=== PATIENT | female | born 1935 | race Caucasian/White ===

== ENCOUNTER → 2016-10-15 | Outpatient (CLI) | payer MEDICARE ==
--- NOTE | 2016-10-26 06:53 | MM ---
Reason for exam: additional evaluation requested from prior study. Last mammogram was performed 1 year ago. History: Patient is postmenopausal, has history of breast cancer at age 70, and has history of other cancer at age 70. Family history of breast cancer in mother at age 39, breast cancer in aunt at age 48, and breast cancer in daughter at age 47. Malignant lumpectomy of the right breast, 2006. Radiation therapy of the right breast, 2006. Excisional biopsy of the left breast, 1992. Took estrogen for 6 months beginning at age 33. Physical Findings: Nurse did not find any significant physical abnormalities on exam. MG Diagnostic Mammo w CAD MERLE LM, CC with magnification, and MLO with magnification view(s) were taken of the left breast. Prior study comparison: October 07, 2015, bilateral MG 3d screening mammo w/cad. October 03, 2014, right breast MG work up mamm w CAD RT. September 28, 2014, bilateral MG screening mammo w CAD. There are scattered fibroglandular densities. Left breast focal asymmetry upper outer quadrant resolves on spot compression and appears as fibroglandular tissue. There is no discrete abnormality. These results were verbally communicated with the patient and result sheet given to the patient on 10/15/16. ASSESSMENT: Negative, BI-RAD 1 RECOMMENDATION: Routine screening mammogram of both breasts in 1 year.
== END | disposition home or self-care (01) ==
LOC: RADMAMWWP 07:29
PROVIDERS: ATTEND Internal Medicine Hematology & Oncology
DX: Z85.3 Personal history of malignant neoplasm of breast (principal)

== ENCOUNTER → 2017-11-24 | Outpatient (CLI) | payer MEDICARE ==
--- NOTE | 2017-11-25 13:36 | MM ---
Reason for exam: screening (asymptomatic). Last mammogram was performed 1 year and 1 month ago. History: Patient is postmenopausal, has history of breast cancer at age 70, and has history of other cancer at age 70. Family history of breast cancer in mother at age 39, breast cancer in aunt at age 48, and breast cancer in daughter at age 47. Malignant lumpectomy of the right breast, 2006. Radiation therapy of the right breast, 2006. Excisional biopsy of the left breast, 1992. Took estrogen for 6 months beginning at age 33. Physical Findings: A clinical breast exam by your physician is recommended on an annual basis and results should be correlated with mammographic findings. MG Screening Mammo w CAD Bilateral CC and MLO view(s) were taken. Prior study comparison: October 15, 2016, bilateral MG diagnostic mammo w CAD MERLE. October 07, 2015, bilateral MG 3d screening mammo w/cad. There are scattered fibroglandular densities. There are benign appearing round, linear calcifications bilaterally, greater in the right breast. There is no discrete abnormality. Benign bilateral axillary lymph nodes. ASSESSMENT: Benign, BI-RAD 2 RECOMMENDATION: Routine screening mammogram of both breasts in 1 year.
== END | disposition home or self-care (01) ==
LOC: RADMAMWWP 08:53
PROVIDERS: ATTEND Internal Medicine Hematology & Oncology
DX: Z12.31 Encounter for screening mammogram for malignant neoplasm of breast (principal); Z85.3 Personal history of malignant neoplasm of breast
CPT/HCPCS: 77067

== ENCOUNTER 2018-04-08 12:47 | Inpatient (IN) | payer MEDICARE ==
[2018-04-08] MEDS ORDERED: SODIUM CHLORIDE 0.9% 500 ML 500 ML IV STA (13:10)
[2018-04-08] MEDS ORDERED: IPRATROPIUM 0.5 MG/2.5 ML NEBU INHALATION STA (13:10)
[2018-04-08] MEDS ORDERED: AZITHROMYCIN 500 MG in SODIUM CHLORIDE 0.9% 250 ML IVPB STA (13:10)
[2018-04-08] MEDS ORDERED: ALBUTEROL NEBULIZED 2.5 MG/3 ML INHALATION STA (13:10)
--- NOTE | 2018-04-08 13:31 | ED ---
General Adult HPI - General Chief complaint: Shortness of Breath Stated complaint: CHF/low oxygen Time Seen by Provider: 04/08/18 13:01 Source: patient, RN notes reviewed, old records reviewed Mode of arrival: wheelchair Limitations: no limitations - History of Present Illness Initial comments: 82 -year-old female presenting for evaluation of cough, dyspnea, and fever. Patient states the past 2-3 days she said significant productive cough with green sputum. She's had nasal congestion and rhinorrhea. She's had fever chills at home. She reports dyspnea associated with her cough. Denies significant central chest pain. She does have some chest congestion. Denies lower extremity pain or swelling. Denies abdominal pain nausea vomiting. She has positive sick contacts at home. She was seen at urgent care earlier today, x-ray was obtained which was suggestive of pneumonia. - Related Data Home Medications Medication Instructions Recorded Confirmed Calcium Carbonate [Calcium] 600 mg PO DAILY 04/08/18 04/08/18 Cholecalciferol [Vitamin D3] 1,000 unit PO DAILY 04/08/18 04/08/18 Levothyroxine Sodium 150 mcg PO DAILY 04/08/18 04/08/18 amLODIPine [Norvasc] 5 mg PO DAILY 04/08/18 04/08/18 Allergies Allergy/AdvReac Type Severity Reaction Status Date / Time Sulfa (Sulfonamide Allergy Unknown Verified 04/08/18 13:41 Antibiotics) Review of Systems ROS Statement: Those systems with pertinent positive or pertinent negative responses have been documented in the HPI. ROS Other: All systems not noted in ROS Statement are negative. Past Medical History Past Medical History: Hypertension, Thyroid Disorder History of Any Multi-Drug Resistant Organisms: None Reported Past Surgical History: Cholecystectomy, Hysterectomy, Tonsillectomy Additional Past Surgical History / Comment(s): thyroidectomy Past Psychological History: No Psychological Hx Reported Smoking Status: Never smoker Past Alcohol Use History: None Reported Past Drug Use History: None Reported General Exam Limitations: no limitations General appearance: alert, in no apparent distress Head exam: Present: atraumatic, normocephalic Eye exam: Present: normal appearance, PERRL ENT exam: Present: other (Congestion) Neck exam: Present: normal inspection. Absent: tenderness, meningismus Respiratory exam: Present: respiratory distress (mild), wheezes, rhonchi ( Scattered rhonchi) Cardiovascular Exam: Present: normal rhythm, tachycardia GI/Abdominal exam: Present: soft. Absent: distended, tenderness, guarding Extremities exam: Present: normal inspection, normal capillary refill. Absent: pedal edema Neurological exam: Present: alert, oriented X3, CN II-XII intact. Absent: motor sensory deficit Psychiatric exam: Present: normal affect Skin exam: Present: warm, dry, intact. Absent: cyanosis, diaphoretic Course Vital Signs 04/08/18 04/08/18 04/08/18 12:53 13:42 14:02 Temperature 100.6 F H Pulse Rate 106 H 98 111 H Respiratory 20 Rate Blood Pressure 113/73 O2 Sat by Pulse 87 L Oximetry EKG Findings - EKG Comments: EKG Findings:: EKG: Normal sinus rhythm, rate of 96, IA interval 176, QRS duration 64, QTC [address] segment elevation Medical Decision Making - Medical Decision Making 82-year-old female with cough and dyspnea. X-ray obtained, shows bilateral patchy infiltrate, worse in the left lung field. Patient is febrile, mildly tachycardic, white count 10.7 which is mildly elevated. Patient is started on IV antibiotics, and continued acquired pneumonia. Case is discussed with Dr. Pollard, he is able to evaluate patient emergency department and will admit. - Lab Data Result diagrams: 04/08/18 13:22 04/08/18 13:22 Lab Results 04/08/18 04/08/18 04/08/18 Range/Units 13:22 13:22 13:22 WBC 10.7 H (3.8-10.6) k/uL RBC 4.62 (3.80-5.40) m/uL Hgb 13.7 (11.4-16.0) gm/dL Hct 40.1 (34.0-46.0) % MCV 86.8 (80.0-100.0) fL MCH 29.7 (25.0-35.0) pg MCHC 34.2 (31.0-37.0) g/dL RDW 14.8 (11.5-15.5) % Plt Count 133 L (150-450) k/uL Neutrophils % 86 % Lymphocytes % 8 % Monocytes % 4 % Eosinophils % 1 % Basophils % 0 % Neutrophils # 9.2 H (1.3-7.7) k/uL Lymphocytes # 0.8 L (1.0-4.8) k/uL Monocytes # 0.5 (0-1.0) k/uL Eosinophils # 0.1 (0-0.7) k/uL Basophils # 0.0 (0-0.2) k/uL PT 10.6 (9.0-12.0) sec INR 1.0 (<1.2) APTT 25.9 (22.0-30.0) sec Sodium 132 L (137-145) mmol/L Potassium 4.3 (3.5-5.1) mmol/L Chloride 96 L (98-107) mmol/L Carbon Dioxide 24 (22-30) mmol/L Anion Gap 12 mmol/L BUN 34 H (7-17) mg/dL Creatinine 1.15 H (0.52-1.04) mg/dL Est GFR (CKD-EPI)AfAm 52 (>60 ml/min/1.73 sqM) Est GFR (CKD-EPI)NonAf 45 (>60 ml/min/1.73 sqM) Glucose 118 H (74-99) mg/dL Plasma Lactic Acid Shaan (0.7-2.0) mmol/L Calcium 8.3 L (8.4-10.2) mg/dL Magnesium 1.7 (1.6-2.3) mg/dL Total Bilirubin 1.9 H (0.2-1.3) mg/dL AST 63 H (14-36) U/L ALT 50 (9-52) U/L Alkaline Phosphatase 244 H (38-126) U/L Total Protein 7.8 (6.3-8.2) g/dL Albumin 3.8 (3.5-5.0) g/dL Influenza Type A RNA (Not Detectd) Influenza Type B (PCR) (Not Detectd) 04/08/18 04/08/18 Range/Units 13:22 13:33 WBC (3.8-10.6) k/uL RBC (3.80-5.40) m/uL Hgb (11.4-16.0) gm/dL Hct (34.0-46.0) % MCV (80.0-100.0) fL MCH (25.0-35.0) pg MCHC (31.0-37.0) g/dL RDW (11.5-15.5) % Plt Count (150-450) k/uL Neutrophils % % Lymphocytes % % Monocytes % % Eosinophils % % Basophils % % Neutrophils # (1.3-7.7) k/uL Lymphocytes # (1.0-4.8) k/uL Monocytes # (0-1.0) k/uL Eosinophils # (0-0.7) k/uL Basophils # (0-0.2) k/uL PT (9.0-12.0) sec INR (<1.2) APTT (22.0-30.0) sec Sodium (137-145) mmol/L Potassium (3.5-5.1) mmol/L Chloride (98-107) mmol/L Carbon Dioxide (22-30) mmol/L Anion Gap mmol/L BUN (7-17) mg/dL Creatinine (0.52-1.04) mg/dL Est GFR (CKD-EPI)AfAm (>60 ml/min/1.73 sqM) Est GFR (CKD-EPI)NonAf (>60 ml/min/1.73 sqM) Glucose (74-99) mg/dL Plasma Lactic Acid Shaan 1.7 (0.7-2.0) mmol/L Calcium (8.4-10.2) mg/dL Magnesium (1.6-2.3) mg/dL Total Bilirubin (0.2-1.3) mg/dL AST (14-36) U/L ALT (9-52) U/L Alkaline Phosphatase (38-126) U/L Total Protein (6.3-8.2) g/dL Albumin (3.5-5.0) g/dL Influenza Type A RNA Not Detected (Not Detectd) Influenza Type B (PCR) Not Detected (Not Detectd) Disposition Clinical Impression: Community acquired pneumonia Disposition: ADMITTED IP TO THIS HOSP Condition: Stable Is patient prescribed a controlled substance at d/c from ED?: No Referrals: Brian Zuluaga MD [Primary Care Provider] - 1-2 days Decision to Admit Reason: Admit from EC Decision Date: 04/08/18 Decision Time: 14:58
[2018-04-08 13:41] LABS: Basophils % (A) 0 %; Eosinophils # (A) 0.1 k/uL (0-0.7); Eosinophils % (A) 1 %; HCT 40.1 % (34.0-46.0); HGB 13.7 gm/dL (11.4-16.0); Lymphocytes # (A) 0.8 k/uL (1.0-4.8); Lymphocytes % (A) 8 %; MCH 29.7 pg (25.0-35.0); MCHC 34.2 g/dL (31.0-37.0); MCV 86.8 fL (80.0-100.0); Mean Platelet Volume 9.1; Monocytes # (A) 0.5 k/uL (0-1.0); Monocytes % (A) 4 %; Neutrophils # (A) 9.2 k/uL (1.3-7.7); Neutrophils % (A) 86 %; Platelet Count 133 k/uL (150-450); RBC 4.62 m/uL (3.80-5.40); RDW 14.8 % (11.5-15.5); WBC 10.7 k/uL (3.8-10.6)
[2018-04-08 13:48] LABS: Albumin 3.8 g/dL (3.5-5.0); Calcium 8.3 mg/dL (8.4-10.2); Magnesium 1.7 mg/dL (1.6-2.3); Total Bilirubin 1.9 mg/dL (0.2-1.3); Total Protein 7.8 g/dL (6.3-8.2)
[2018-04-08 13:50] LABS: Potassium 4.3 mmol/L (3.5-5.1)
[2018-04-08 14:14] LABS: Partial Thromboplastin Time 25.9 sec (22.0-30.0); Prothrombin Time 10.6 sec (9.0-12.0)
--- NOTE | 2018-04-08 14:53 | XR ---
EXAMINATION TYPE: XR chest 2V DATE OF EXAM: 04/08/2018 COMPARISON: 11/16/2011 HISTORY: Shortness of breath TECHNIQUE: Frontal and lateral views of the chest are obtained. FINDINGS: Scattered senescent parenchymal changes noted. Hyperinflation compatible with COPD. Patchy perihilar infiltrates may reflect underlying pneumonia. Correlate clinically and progress stud ies are advised. Heart size is stable. Mediastinal structures are stable and grossly unremarkable. No evidence for hilar prominence. Degenerative changes dorsal spine. IMPRESSION: 1. Patchy perihilar infiltrates may reflect underlying pneumonia. Correlate clinically and progress s tudies are advised.
--- NOTE | 2018-04-08 15:02 | P.HPIM ---
History of Present Illness 82-year-old pleasant female came in with compensative cough shortness of breath and fever has been going on for last 2-3 days with greenish sputum production patient is off so short of breath. Patient did quit smoking years ago. Patient doesn't use any onset at home. Patient is found to have bilateral hilar pneumonia. Appears to have severe tracheobronchitis or pneumonia on exam patient was started on Rocephin and azithromycin. Patient is hyponatremic as well for which patient on IV fluids. Review of Systems REVIEW OF SYSTEMS: CONSTITUTIONAL: As mentioned above HEENT: No recent visual problems or hearing problems. Denied any sore throat. CARDIOVASCULAR: No chest pain, orthopnea, PND, no palpitations, no syncope. PULMONARY: As mentioned above no hemoptysis GASTROINTESTINAL: No diarrhea, no nausea, no vomiting, no abdominal pain. NEUROLOGICAL: No headaches, no weakness, no numbness. HEMATOLOGICAL: Denies any bleeding or petechiae. GENITOURINARY: Denies any burning micturition, frequency, or urgency. MUSCULOSKELETAL/RHEUMATOLOGICAL: Denies any joint pain, swelling, or any muscle pain. ENDOCRINE: Denies any polyuria or polydipsia. The rest of the 14-point review of systems is negative. Past Medical History Past Medical History: Hypertension, Thyroid Disorder History of Any Multi-Drug Resistant Organisms: None Reported Past Surgical History: Cholecystectomy, Hysterectomy, Tonsillectomy Additional Past Surgical History / Comment(s): thyroidectomy Past Psychological History: No Psychological Hx Reported Smoking Status: Never smoker Past Alcohol Use History: None Reported Past Drug Use History: None Reported Medications and Allergies Home Medications Medication Instructions Recorded Confirmed Type Calcium Carbonate [Calcium] 600 mg PO DAILY 04/08/18 04/08/18 History Cholecalciferol [Vitamin D3] 1,000 unit PO DAILY 04/08/18 04/08/18 History Levothyroxine Sodium 150 mcg PO DAILY 04/08/18 04/08/18 History amLODIPine [Norvasc] 5 mg PO DAILY 04/08/18 04/08/18 History Allergies Allergy/AdvReac Type Severity Reaction Status Date / Time Sulfa (Sulfonamide Allergy Unknown Verified 04/08/18 13:41 Antibiotics) Physical Exam Vitals: Vital Signs Temp Pulse Resp BP Pulse Ox 04/08/18 14:02 111 H 04/08/18 13:42 98 04/08/18 12:53 100.6 F H 106 H 20 113/73 87 L Intake and Output 04/07/18 04/08/18 04/08/18 22:59 06:59 14:59 Other: Weight 79.832 kg PHYSICAL EXAMINATION: GENERAL: The patient is alert and oriented x3, not in any acute distress. Well developed, well nourished. HEENT: Pupils are round and equally reacting to light. EOMI. No scleral icterus. No conjunctival pallor. Normocephalic, atraumatic. No pharyngeal erythema. No thyromegaly. CARDIOVASCULAR: S1 and S2 present. No murmurs, rubs, or gallops. PULMONARY: Rhonchus breath sounds bilaterally no significant bronchophony or egophony on exam failing good air entry into bilateral lung xavier. ABDOMEN: Soft, nontender, nondistended, normoactive bowel sounds. No palpable organomegaly. MUSCULOSKELETAL: No joint swelling or deformity. EXTREMITIES: No cyanosis, clubbing, or pedal edema. NEUROLOGICAL: Gross neurological examination did not reveal any focal deficits. SKIN: No rashes. Results CBC & Chem 7: 04/08/18 13:22 04/08/18 13:22 Labs: Abnormal Lab Results - Last 24 Hours (Table) 04/08/18 04/08/18 Range/Units 13:22 13:22 WBC 10.7 H (3.8-10.6) k/uL Plt Count 133 L (150-450) k/uL Neutrophils # 9.2 H (1.3-7.7) k/uL Lymphocytes # 0.8 L (1.0-4.8) k/uL Sodium 132 L (137-145) mmol/L Chloride 96 L (98-107) mmol/L BUN 34 H (7-17) mg/dL Creatinine 1.15 H (0.52-1.04) mg/dL Glucose 118 H (74-99) mg/dL Calcium 8.3 L (8.4-10.2) mg/dL Total Bilirubin 1.9 H (0.2-1.3) mg/dL AST 63 H (14-36) U/L Alkaline Phosphatase 244 H (38-126) U/L Assessment and Plan Plan: -Sepsis: Probably secondary to severe tracheobronchitis is community acquired pneumonia involving the right hilar lesion, patient will be on Rocephin and azithromycin blood cultures were obtained sputum cultures will be obtained. Continue with inhalational treatments on as-needed basis as-needed basis -Hypertension hold off amlodipine because of sepsis and concerns of hypotension -Hypothyroidism continue with levothyroxine -Hypovolemic hyponatremia from sepsis IV fluids will be continued as mentioned above -Mild acute renal failure secondary to sepsis including azotemia expected to improve with IV fluids.
[2018-04-08] MEDS: AZITHROMYCIN 500 MG in SODIUM CHLORIDE 0.9% 250 ML IVPB SCH (15:29)
[2018-04-08 17:09] VITALS: BMI 33.2
[2018-04-08] MEDS: IPRATROPIUM-ALBUTEROL 3 ML NEB INHALATION SCH ×2 (17:16→21:23)
[2018-04-08] MEDS: SODIUM CHLORIDE 0.9% 1,000 ML IV SCH (17:32)
[2018-04-08] MEDS: METOPROLOL TARTRATE 12.5 MG TAB PO SCH (17:35)
[2018-04-09] MEDS: LEVOTHYROXINE 75 MCG TAB PO SCH (05:15)
[2018-04-09] MEDS: SODIUM CHLORIDE 0.9% 1,000 ML IV SCH (05:15)
[2018-04-09] MEDS: IPRATROPIUM-ALBUTEROL 3 ML NEB INHALATION SCH ×3 (06:15→21:38)
[2018-04-09] MEDS: METOPROLOL TARTRATE 12.5 MG TAB PO SCH ×2 (08:08→22:13)
[2018-04-09] MEDS: AZITHROMYCIN 500 MG in SODIUM CHLORIDE 0.9% 250 ML IVPB SCH (08:08)
[2018-04-09] MEDS ORDERED: METOPROLOL TARTRATE 12.5 MG TAB ONE (12:00)
[2018-04-09] MEDS ORDERED: methylPREDNISolone SOD SUCCI 125 MG/2 ML VIAL ONE (12:00)
[2018-04-09] MEDS ORDERED: IPRATROPIUM-ALBUTEROL 3 ML NEB ONE ×2 (12:00)
[2018-04-10] MEDS ORDERED: ARTIFICIAL TEARS-HYPROMELLOSE DROPS 15 ML BTL BOTH EYES PRN (00:05)
[2018-04-10] MEDS: LEVOTHYROXINE 75 MCG TAB PO SCH (06:40)
[2018-04-10 07:01] LABS: HCT 34.4 % (34.0-46.0); HGB 11.1 gm/dL (11.4-16.0); MCHC 32.4 g/dL (31.0-37.0); MCV 89.6 fL (80.0-100.0); Mean Platelet Volume 9.1; Platelet Count 113 k/uL (150-450); RBC 3.84 m/uL (3.80-5.40); RDW 14.9 % (11.5-15.5); WBC 5.1 k/uL (3.8-10.6)
[2018-04-10] MEDS: METOPROLOL TARTRATE 12.5 MG TAB PO SCH ×2 (07:26→21:04)
[2018-04-10] MEDS: predniSONE 20 MG TAB PO SCH (07:26)
[2018-04-10] MEDS: IPRATROPIUM-ALBUTEROL 3 ML NEB INHALATION SCH ×4 (07:51→20:09)
[2018-04-10 10:43] LABS: Anion Gap 7 mmol/L; Blood Urea Nitrogen 21 mg/dL (7-17); Calcium 7.6 mg/dL (8.4-10.2); Carbon Dioxide 25 mmol/L (22-30); Chloride 107 mmol/L (98-107); Glucose 224 mg/dL (74-99); Potassium 4.4 mmol/L (3.5-5.1); Sodium 139 mmol/L (137-145)
[2018-04-10 10:45] LABS: Basophils % (A) 1 %; Eosinophils % (A) 0 %; HCT 35.3 % (34.0-46.0); HGB 11.3 gm/dL (11.4-16.0); Lymphocytes # (A) 0.6 k/uL (1.0-4.8); Lymphocytes % (A) 11 %; MCH 28.9 pg (25.0-35.0); MCV 90.3 fL (80.0-100.0); Mean Platelet Volume 9.7; Monocytes # (A) 0.1 k/uL (0-1.0); Monocytes % (A) 2 %; Neutrophils # (A) 4.6 k/uL (1.3-7.7); Neutrophils % (A) 84 %; Platelet Count 133 k/uL (150-450); RBC 3.91 m/uL (3.80-5.40); RDW 14.6 % (11.5-15.5); WBC 5.5 k/uL (3.8-10.6)
[2018-04-10 10:53] LABS: Albumin 2.6 g/dL (3.5-5.0); Calcium 7.2 mg/dL (8.4-10.2); Potassium 3.6 mmol/L (3.5-5.1); Total Bilirubin 0.7 mg/dL (0.2-1.3); Total Protein 5.7 g/dL (6.3-8.2)
--- NOTE | 2018-04-10 11:13 | P.PN ---
Subjective Progress Note Date: 04/09/18 82-year-old admitted the for the hilar pneumonia right side along with COPD exacerbation patient was started on steroids patient is still quite a bit short of breath although overall she she says she is improved Constitutional: Denied any fatigue denied any fever. Cardio vascular: denied any chest pain, palpitations Gastrointestinal denied any nausea vomiting Pulmonary: As mentioned in HPI Neurologic denied any new focal deficits All inpatient medications were reviewed and appropriate changes in these medications as dictated in the interval history and assessment and plan. Objective - Vital Signs Vital signs: Vital Signs Temp 97.6 F 04/10/18 06:20 Pulse 64 04/10/18 08:02 Resp 20 04/10/18 06:20 BP 92/56 04/10/18 06:20 Pulse Ox 98 04/10/18 06:20 Intake & Output 04/09/18 04/10/18 04/10/18 18:59 06:59 18:59 Intake Total 725 Balance 725 Intake: Oral 725 Other: Voiding Method Toilet Toilet Toilet # Voids 1 3 - Exam PHYSICAL EXAMINATION: GENERAL: The patient is alert and oriented x3, not in any acute distress. Well developed, well nourished. HEENT: Pupils are round and equally reacting to light. EOMI. No scleral icterus. No conjunctival pallor. Normocephalic, atraumatic. No pharyngeal erythema. No thyromegaly. CARDIOVASCULAR: S1 and S2 present. No murmurs, rubs, or gallops. PULMONARY: Rhonchus breath sounds bilaterally no significant bronchophony or egophony on exam failing good air entry into bilateral lung xavier. Patient doesn't have expiratory wheezing ABDOMEN: Soft, nontender, nondistended, normoactive bowel sounds. No palpable organomegaly. MUSCULOSKELETAL: No joint swelling or deformity. EXTREMITIES: No cyanosis, clubbing, or pedal edema. NEUROLOGICAL: Gross neurological examination did not reveal any focal deficits. SKIN: No rashes. - Labs CBC & Chem 7: 04/10/18 10:03 04/10/18 10:03 Labs: Abnormal Lab Results - Last 24 Hours (Table) 04/09/18 04/09/18 04/10/18 Range/Units 12:00 12:00 10:03 Hgb 11.1 L 11.3 L (11.4-16.0) gm/dL Plt Count 113 L 133 L (150-450) k/uL Lymphocytes # 0.6 L (1.0-4.8) k/uL Sodium 135 L (137-145) mmol/L BUN 26 H (7-17) mg/dL Glucose 125 H (74-99) mg/dL Calcium 7.2 L (8.4-10.2) mg/dL AST 41 H (14-36) U/L Alkaline Phosphatase 164 H (38-126) U/L Total Protein 5.7 L (6.3-8.2) g/dL Albumin 2.6 L (3.5-5.0) g/dL 04/10/18 Range/Units 10:03 Hgb (11.4-16.0) gm/dL Plt Count (150-450) k/uL Lymphocytes # (1.0-4.8) k/uL Sodium (137-145) mmol/L BUN 21 H (7-17) mg/dL Glucose 224 H (74-99) mg/dL Calcium 7.6 L (8.4-10.2) mg/dL AST (14-36) U/L Alkaline Phosphatase (38-126) U/L Total Protein (6.3-8.2) g/dL Albumin (3.5-5.0) g/dL Microbiology - Last 24 Hours (Table) 04/08/18 13:22 Blood Culture - Preliminary Blood No Growth after 24 hours Assessment and Plan Plan: -Sepsis: Probably secondary to severe tracheobronchitis is community acquired pneumonia involving the right hilar lesion, patient will be on Rocephin and azithromycin blood cultures were obtained sputum cultures will be obtained. Continue with inhalational treatments on as-needed basis as-needed basis COPD with acute exacerbation patient will be started on systemic steroids. -Hypertension hold off amlodipine because of sepsis and concerns of hypotension -Hypothyroidism continue with levothyroxine -Hypovolemic hyponatremia from sepsis IV fluids will be continued as mentioned above -Mild acute renal failure secondary to sepsis including azotemia expected to improve with IV fluids.
--- NOTE | 2018-04-10 17:10 | P.PN ---
Subjective 82-year-old admitted the for the hilar pneumonia right side along with COPD exacerbation patient was started on steroids patient is still quite a bit short of breath although overall she she says she is improved 04/10/2017 Has significant wheezing rhonchus breath sounds. Feels better. Shortness of breath significantly improved Constitutional: Denied any fatigue denied any fever. Cardio vascular: denied any chest pain, palpitations Gastrointestinal denied any nausea vomiting Pulmonary: As mentioned in HPI Neurologic denied any new focal deficits All inpatient medications were reviewed and appropriate changes in these medications as dictated in the interval history and assessment and plan. Objective - Vital Signs Vital signs: Vital Signs Temp 97.2 F L 04/10/18 15:03 Pulse 72 04/10/18 16:23 Resp 18 04/10/18 15:03 BP 119/58 04/10/18 15:03 Pulse Ox 95 04/10/18 15:03 Intake & Output 04/09/18 04/10/18 04/10/18 18:59 06:59 18:59 Intake Total 725 Balance 725 Intake: Oral 725 Other: Voiding Method Toilet Toilet Toilet # Voids 1 3 - Exam PHYSICAL EXAMINATION: GENERAL: The patient is alert and oriented x3, not in any acute distress. Well developed, well nourished. HEENT: Pupils are round and equally reacting to light. EOMI. No scleral icterus. No conjunctival pallor. Normocephalic, atraumatic. No pharyngeal erythema. No thyromegaly. CARDIOVASCULAR: S1 and S2 present. No murmurs, rubs, or gallops. PULMONARY: Rhonchus breath sounds bilaterally no significant bronchophony or egophony on exam failing good air entry into bilateral lung xavier. Patient doesn't have expiratory wheezing ABDOMEN: Soft, nontender, nondistended, normoactive bowel sounds. No palpable organomegaly. MUSCULOSKELETAL: No joint swelling or deformity. EXTREMITIES: No cyanosis, clubbing, or pedal edema. NEUROLOGICAL: Gross neurological examination did not reveal any focal deficits. SKIN: No rashes. - Labs CBC & Chem 7: 04/10/18 10:03 04/10/18 10:03 Labs: Abnormal Lab Results - Last 24 Hours (Table) 04/09/18 04/09/18 04/10/18 Range/Units 12:00 12:00 10:03 Hgb 11.1 L 11.3 L (11.4-16.0) gm/dL Plt Count 113 L 133 L (150-450) k/uL Lymphocytes # 0.6 L (1.0-4.8) k/uL Sodium 135 L (137-145) mmol/L BUN 26 H (7-17) mg/dL Glucose 125 H (74-99) mg/dL Calcium 7.2 L (8.4-10.2) mg/dL AST 41 H (14-36) U/L Alkaline Phosphatase 164 H (38-126) U/L Total Protein 5.7 L (6.3-8.2) g/dL Albumin 2.6 L (3.5-5.0) g/dL 04/10/18 Range/Units 10:03 Hgb (11.4-16.0) gm/dL Plt Count (150-450) k/uL Lymphocytes # (1.0-4.8) k/uL Sodium (137-145) mmol/L BUN 21 H (7-17) mg/dL Glucose 224 H (74-99) mg/dL Calcium 7.6 L (8.4-10.2) mg/dL AST (14-36) U/L Alkaline Phosphatase (38-126) U/L Total Protein (6.3-8.2) g/dL Albumin (3.5-5.0) g/dL Microbiology - Last 24 Hours (Table) 04/08/18 13:22 Blood Culture - Preliminary Blood No Growth after 48 hours 04/08/18 Unknown Gram Stain - Final Sputum Sputum Culture - Final Assessment and Plan Plan: -Sepsis: Probably secondary to severe tracheobronchitis is community acquired pneumonia involving the right hilar lesion, patient will be on Rocephin and azithromycin blood cultures were obtained sputum cultures will be obtained. Continue with inhalational treatments on as-needed basis as-needed basis COPD with acute exacerbation patient will be started on systemic steroids, continue with inhalational treatments -Hypertension hold off amlodipine because of sepsis and concerns of hypotension -Hypothyroidism continue with levothyroxine -Hypovolemic hyponatremia from sepsis IV fluids will be continued as mentioned above -Mild acute renal failure secondary to sepsis including azotemia expected to improve with IV fluids.
[2018-04-10] MEDS: IPRATROPIUM-ALBUTEROL 3 ML NEB INHALATION PRN (23:54)
[2018-04-11] MEDS: LEVOTHYROXINE 75 MCG TAB PO SCH (05:39)
[2018-04-11] MEDS: IPRATROPIUM-ALBUTEROL 3 ML NEB INHALATION SCH ×4 (07:37→20:22)
[2018-04-11] MEDS: predniSONE 20 MG TAB PO SCH (08:03)
[2018-04-11] MEDS: METOPROLOL TARTRATE 12.5 MG TAB PO SCH ×2 (08:03→20:43)
[2018-04-11] MEDS: AZITHROMYCIN 500 MG in SODIUM CHLORIDE 0.9% 250 ML IVPB SCH (08:45)
--- NOTE | 2018-04-11 22:28 | P.PN ---
Subjective Progress Note Date: 04/11/18 Principal diagnosis: Left-sided pneumonia. This is a continue progress note on 82-year-old white female essentially admitted for left-sided pneumonia. She was concerned because of her history of cancer in the past that this could be some form of recurrence. However, no weight loss is noted. No hemoptysis stated. No significant fever or chills recently but significant chest congestion and fatigue. Objective - Vital Signs Vital signs: Vital Signs Temp 98.0 F 04/11/18 14:36 Pulse 84 04/11/18 20:40 Resp 16 04/11/18 15:19 BP 127/72 04/11/18 14:36 Pulse Ox 97 04/11/18 14:36 Intake & Output 04/11/18 04/11/18 04/12/18 06:59 18:59 06:59 Other: Voiding Method Toilet # Voids 2 2 - Constitutional General appearance: Present: cooperative, no acute distress - EENT Eyes: Absent: abnormal pupil - Neck Neck: Absent: lymphadenopathy - Respiratory Respiratory: left: rhonchi - Cardiovascular Rhythm: regular Heart sounds: normal: S1, S2 Abnormal Heart Sounds: Absent: S3 Gallop - Gastrointestinal General gastrointestinal: Present: soft. Absent: tenderness - Integumentary Integumentary: Absent: jaundiced - Musculoskeletal Musculoskeletal: Present: generalized weakness - Labs CBC & Chem 7: 04/10/18 10:03 04/10/18 10:03 Labs: Microbiology - Last 24 Hours (Table) 04/08/18 13:22 Blood Culture - Preliminary Blood No Growth after 72 hours Assessment and Plan (1) Community acquired pneumonia Current Visit: Yes Status: Acute Code(s): J18.9 - PNEUMONIA, UNSPECIFIED ORGANISM SNOMED Code(s): 568286139 (2) Sepsis Current Visit: Yes Status: Acute Code(s): A41.9 - SEPSIS, UNSPECIFIED ORGANISM SNOMED Code(s): 08912462 Plan: Continue current regimen of treatment. The patient is clinically improving. Check CBC and CMP in a.m. Time with Patient: Less than 30
[2018-04-12] MEDS: LEVOTHYROXINE 75 MCG TAB PO SCH (05:41)
--- NOTE | 2018-04-12 07:04 | P.PN ---
Subjective Principal diagnosis: Progress pneumonia The patient is here essentially because of significant problems related to patchy infiltrate. She states that she doesn't feel much improved since yesterday. I will go ahead and consult pulmonology for assistance. Chest x- ray will be pending today. Otherwise, known voiding difficulties. Some sleep issues stated. Appetite is nominal. Objective - Vital Signs Vital signs: Vital Signs Temp 97.8 F 04/11/18 23:00 Pulse 82 04/11/18 23:00 Resp 18 04/11/18 23:00 BP 116/68 04/11/18 23:00 Pulse Ox 95 04/11/18 23:00 Intake & Output 04/11/18 04/12/18 04/12/18 18:59 06:59 18:59 Other: Voiding Method Toilet # Voids 2 2 - Constitutional General appearance: Present: average body habitus - EENT Eyes: Absent: abnormal pupil - Respiratory Respiratory: bilateral: CTA - Cardiovascular Rhythm: regular Heart sounds: normal: S1, S2 Abnormal Heart Sounds: Absent: S3 Gallop - Gastrointestinal General gastrointestinal: Present: soft. Absent: tenderness - Psychiatric Psychiatric: Present: A&O x's 3, appropriate affect - Labs CBC & Chem 7: 04/10/18 10:03 04/10/18 10:03 Labs: Microbiology - Last 24 Hours (Table) 04/08/18 13:22 Blood Culture - Preliminary Blood No Growth after 72 hours Assessment and Plan (1) Community acquired pneumonia Current Visit: Yes Status: Acute Code(s): J18.9 - PNEUMONIA, UNSPECIFIED ORGANISM SNOMED Code(s): 983568175 (2) Sepsis Current Visit: Yes Status: Acute Code(s): A41.9 - SEPSIS, UNSPECIFIED ORGANISM SNOMED Code(s): 80061670 Plan: Continue current regimen of antibiotic treatment. Pulmonology will be consulted for secondary opinion. New. Check CBC and CMP in a.m.
[2018-04-12] MEDS: predniSONE 20 MG TAB PO SCH (07:28)
[2018-04-12] MEDS: AZITHROMYCIN 500 MG TAB PO SCH (07:28)
[2018-04-12] MEDS: METOPROLOL TARTRATE 12.5 MG TAB PO SCH ×2 (07:28→21:38)
[2018-04-12] MEDS: IPRATROPIUM-ALBUTEROL 3 ML NEB INHALATION SCH ×4 (07:49→20:57)
--- NOTE | 2018-04-12 09:47 | XR ---
EXAMINATION TYPE: XR chest 2V DATE OF EXAM: 04/12/2018 COMPARISON: Chest x-ray 4 days ago and older x-ray November 16, 2011. HISTORY: Abnormal x-ray, infiltrate. TECHNIQUE: Frontal and lateral views of the chest are obtained. FINDINGS: There is persistent left basilar opacity. There are new small to tiny left greater than r ight pleural effusions. Eventration of the anterior aspect right hemidiaphragm is redemonstrated. The cardiac silhouette size remains upper limits of normal with atherosclerotic aorta. The osseous str uctures are intact. IMPRESSION: Persistent fairly stable left basilar acute infiltrate and/or atelectasis seen better on frontal view versus lateral view with new small to tiny left greater than right pleural effusions not ed.
[2018-04-12] MEDS: methylPREDNISolone SOD SUCCI 125 MG/2 ML VIAL IV SCH (15:00)
--- NOTE | 2018-04-12 17:56 | P.CNPUL ---
History of Present Illness Consult date: 04/12/18 Reason for consult: dyspnea, cough, asthma, COPD Chief complaint: Shortness of breath cough and wheezing History of present illness: 82-year-old female was admitted into the hospital on 04/08/2018 with ongoing cough congestion shortness of breath of 3-4 day duration along with thick greenish sputum production, patient has based Medical prognosis hypertension and hypothyroidism and hypocalcemia, admitted chest x-ray revealed patchy perihilar infiltrates suggestive of pneumonia, patient was treated with steroids breathing treatment antibiotics with significant improvement however in the last 24 hours some decompensation has been noted patient has been more short of breath disease he continued to have greenish sputum production, during my evaluation patient was very short of breath with clear audible wheezing across the room, I was asked to resume IV steroids send a sputum for Gram stain and culture and obtain chest x-ray, patient was noted to have a patchy predominantly left-sided infiltrate and small pleural effusion noted as well, influenza A and B were both negative renal functions initially revealed GFR of 52% however now is normalized, currently patient is being treated with bronchodilators IV Rocephin and Zithromax and IV steroids with continuation of home medications Review of Systems All systems: negative Past Medical History Past Medical History: Cancer, GERD/Reflux, Hypertension, Osteoarthritis (OA), Thyroid Disorder Additional Past Medical History / Comment(s): had flu and pne vaccines not sure 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 hx lt breast cancer had lumpectomy/radiation, cervical cancer 1970-sx done, thyroidectomy" History of Any Multi-Drug Resistant Organisms: None Reported Past Surgical History: Appendectomy, Bladder Surgery, Breast Surgery, Cholecystectomy, Hysterectomy, Tonsillectomy Additional Past Surgical History / Comment(s): thyroidectomy, rt breast lumpectomy, enma cataracts removed-lens implants, lt knee replacment Past Anesthesia/Blood Transfusion Reactions: No Reported Reaction Additional Past Anesthesia/Blood Transfusion Reaction / Comment(s): never had a blood transfusions Smoking Status: Former smoker - Past Family History Mother Family Medical History: Cancer Additional Family Medical History / Comment(s): from metastatic cancer age 41 Father Family Medical History: Cancer Additional Family Medical History / Comment(s): ge 54 Medications and Allergies Home Medications Medication Instructions Recorded Confirmed Type Calcium Carbonate [Calcium] 600 mg PO DAILY 04/08/18 04/08/18 History Cholecalciferol [Vitamin D3] 1,000 unit PO DAILY 04/08/18 04/08/18 History Levothyroxine Sodium 150 mcg PO DAILY 04/08/18 04/08/18 History amLODIPine [Norvasc] 5 mg PO DAILY 04/08/18 04/08/18 History Allergies Allergy/AdvReac Type Severity Reaction Status Date / Time Sulfa (Sulfonamide Allergy Unknown Verified 04/08/18 13:41 Antibiotics) Physical Exam Vitals: Vital Signs Temp Pulse Pulse Resp BP Pulse Ox 04/12/18 17:13 80 04/12/18 17:03 96 04/12/18 17:02 78 04/12/18 15:00 98.1 F 91 22 141/74 95 04/12/18 11:37 84 04/12/18 08:01 88 04/12/18 07:50 80 04/12/18 07:20 97.3 F L 70 20 122/63 93 L 04/11/18 23:00 97.8 F 82 18 116/68 95 04/11/18 20:40 84 04/11/18 20:24 84 Intake and Output 04/12/18 04/12/18 04/12/18 06:59 14:59 22:59 Other: Voiding Method Toilet Toilet # Voids 2 4 - Constitutional General appearance: average body habitus, cooperative, disheveled, mild distress - EENT Eyes: EOMI, PERRLA, poor dentition, normal appearance Ears: bilateral: normal - Neck Carotids: bilateral: upstroke normal Thyroid: bilateral: normal size - Respiratory Respiratory: bilateral: rales (Predominantly on the right side), rhonchi, wheezing (Very severe bilateral inspiratory expiratory), negative: CTA, diminished, dullness - Cardiovascular Rhythm: regular Heart sounds: normal: S1, S2 - Gastrointestinal General gastrointestinal: decreased bowel sounds, normal bowel sounds, soft - Neurologic Neurologic: CNII-XII intact - Musculoskeletal Musculoskeletal: gait normal, generalized weakness, strength equal bilaterally - Psychiatric Psychiatric: A&O x's 3, appropriate affect, intact judgment & insight Results - Laboratory Findings CBC and BMP: 04/10/18 10:03 04/10/18 10:03 PT/INR, D-dimer PT 10.6 sec (9.0-12.0) 04/08/18 13:22 INR 1.0 (<1.2) 04/08/18 13:22 Abnormal lab findings: Abnormal Labs 04/08/18 04/08/18 04/09/18 13:22 13:22 12:00 WBC 10.7 H Hgb 11.1 L Plt Count 133 L 113 L Neutrophils # 9.2 H Lymphocytes # 0.8 L Sodium 132 L Chloride 96 L BUN 34 H Creatinine 1.15 H Glucose 118 H Calcium 8.3 L Total Bilirubin 1.9 H AST 63 H Alkaline Phosphatase 244 H Total Protein Albumin 04/09/18 04/10/18 04/10/18 12:00 10:03 10:03 WBC Hgb 11.3 L Plt Count 133 L Neutrophils # Lymphocytes # 0.6 L Sodium 135 L Chloride BUN 26 H 21 H Creatinine Glucose 125 H 224 H Calcium 7.2 L 7.6 L Total Bilirubin AST 41 H Alkaline Phosphatase 164 H Total Protein 5.7 L Albumin 2.6 L - Diagnostic Findings Chest x-ray: report reviewed, image reviewed Assessment and Plan Assessment: Non-resolving pneumonia Mild exacerbation of CHF likely acute on chronic diastolic heart failure Small right-sided pleural effusion Acute asthma with asthma exacerbation Suspect ongoing chronic persistent asthma Remote history of smoking History of hypertension and hypertensive cardiovascular disease Plan: Continue IV Rocephin and oral Zithromax Continue IV steroids Breathing treatments Send sputum for Gram stain and culture Arrange computed tomography scan of the chest Time with Patient: Greater than 30
[2018-04-12] MEDS: IPRATROPIUM-ALBUTEROL 3 ML NEB INHALATION PRN (21:22)
--- NOTE | 2018-04-12 21:48 | CT ---
EXAMINATION TYPE: CT angio chest DATE OF EXAM: 04/12/2018 9:23 PM COMPARISON: None HISTORY: pneumonia CT DLP: 389.3 mGycm Automated exposure control for dose reduction was used. CONTRAST: CTA scan of the thorax is performed with IV Contrast, patient injected with 80 mL of Isovue 370, pulm onary embolism protocol. There are 3-D post processed images.. FINDINGS: There is small left pleural effusion. There is patchy interstitial and alveolar infiltrates in both l ungs. These measure up to 2 cm. There is no mediastinal adenopathy. Thoracic aorta shows no aneurysm or dissection. There are no hilar masses. There is no filling defect in the pulmonary arteries. There is minimal atelectasis at the left posterior lung base. There are multiple renal cortical cysts note d. There is an enlarged hepatic pancreatic 1.6 cm lymph node. There is no sign of a pancreatic mass. There are small hiatal hernia. The bony thorax is intact. There is minor spurring in the thoracic spine. IMPRESSION: NO EVIDENCE OF PULMONARY EMBOLISM. LEFT PLEURAL EFFUSION. PATCHY INTERSTITIAL AND ALVEOLAR INFILTRATE S. NO SUSPICIOUS MASS SEEN. THIS PROBABLY RELATES TO INFLAMMATORY DISEASE. LARGE RENAL CORTICAL CYSTS. Enlarged hepatopancreatic lymph node of uncertain significance.
[2018-04-13] MEDS: methylPREDNISolone SOD SUCCI 125 MG/2 ML VIAL IV SCH ×4 (00:06→23:16)
[2018-04-13] MEDS: LEVOTHYROXINE 75 MCG TAB PO SCH (05:59)
[2018-04-13] MEDS: IPRATROPIUM-ALBUTEROL 3 ML NEB INHALATION SCH ×4 (07:21→19:37)
[2018-04-13] MEDS: AZITHROMYCIN 500 MG TAB PO SCH (08:16)
[2018-04-13] MEDS: METOPROLOL TARTRATE 12.5 MG TAB PO SCH ×2 (08:16→20:14)
--- NOTE | 2018-04-13 08:31 | P.PN ---
Subjective Progress Note Date: 04/13/18 Principal diagnosis: Perihilar pneumonia, acute asthma, tracheobronchitis, hypertension hypertensive cardiovascular disease, left pleural effusion, enlarged peripancreatic lymph node of unclear significance on CAT scan 04/13/2018, patient seen eval examined during the rounds clinically slightly better wheezing has improved, patient is being treated with broad-spectrum antibiotics with IV Rocephin and oral Zithromax, computed tomography scan of the chest was performed which has been reviewed, left upper lobe infiltrates and peribronchial thinking are noted nodular infiltrate pattern was seen in the left upper lobe small faint ill-defined nodule in the right upper lobe was also noted findings are likely associated with pneumonia however patient will require a follow-up computed tomography scan in the future to document resolution as these finding would not be apparent on the regular chest x-ray, sputum culture results and reports also reviewed so far no bacterial predominance have been noted final culture results and reports are pending 82-year-old female was admitted into the hospital on 04/08/2018 with ongoing cough congestion shortness of breath of 3-4 day duration along with thick greenish sputum production, patient has based Medical prognosis hypertension and hypothyroidism and hypocalcemia, admitted chest x-ray revealed patchy perihilar infiltrates suggestive of pneumonia, patient was treated with steroids breathing treatment antibiotics with significant improvement however in the last 24 hours some decompensation has been noted patient has been more short of breath disease he continued to have greenish sputum production, during my evaluation patient was very short of breath with clear audible wheezing across the room, I was asked to resume IV steroids send a sputum for Gram stain and culture and obtain chest x-ray, patient was noted to have a patchy predominantly left-sided infiltrate and small pleural effusion noted as well, influenza A and B were both negative renal functions initially revealed GFR of 52% however now is normalized, currently patient is being treated with bronchodilators IV Rocephin and Zithromax and IV steroids with continuation of home medications Objective - Vital Signs Vital signs: Vital Signs Temp 96.8 F L 04/13/18 06:06 Pulse 92 04/13/18 07:36 Resp 18 04/13/18 06:06 BP 126/64 04/13/18 06:06 Pulse Ox 95 04/13/18 06:06 Intake & Output 04/12/18 04/13/18 04/13/18 18:59 06:59 18:59 Other: Voiding Method Toilet # Voids 4 1 - Exam - Constitutional General appearance: average body habitus, cooperative, disheveled, mild distress - EENT Eyes: EOMI, PERRLA, poor dentition, normal appearance Ears: bilateral: normal - Neck Carotids: bilateral: upstroke normal Thyroid: bilateral: normal size - Respiratory Respiratory: bilateral: rales (Predominantly on the right side), rhonchi, wheezing (Very severe bilateral inspiratory expiratory), negative: CTA, diminished, dullness - Cardiovascular Rhythm: regular Heart sounds: normal: S1, S2 - Gastrointestinal General gastrointestinal: decreased bowel sounds, normal bowel sounds, soft - Neurologic Neurologic: CNII-XII intact - Musculoskeletal Musculoskeletal: gait normal, generalized weakness, strength equal bilaterally - Psychiatric Psychiatric: A&O x's 3, appropriate affect, intact judgment & insight - Labs CBC & Chem 7: 04/10/18 10:03 04/10/18 10:03 Labs: Microbiology - Last 24 Hours (Table) 04/12/18 Unknown Gram Stain - Preliminary Sputum Sputum Culture - Preliminary 04/08/18 13:22 Blood Culture - Preliminary Blood No Growth after 96 hours Assessment and Plan Assessment: Non-resolving pneumonia Left upper lobe as well as right upper lobe ill-defined nodular appearance likely pneumonia however occult neoplastic process cannot be excluded Mild exacerbation of CHF likely acute on chronic diastolic heart failure Small right-sided pleural effusion Acute asthma with asthma exacerbation Suspect ongoing chronic persistent asthma Remote history of smoking History of hypertension and hypertensive cardiovascular disease Plan: Continue IV Rocephin and oral Zithromax Continue IV steroids Breathing treatments Send sputum for Gram stain and culture Patient would need a follow-up computed tomography scan in 2-3 months Arrange computed tomography scan of the chest
[2018-04-13 08:46] LABS: HCT 36.1 % (34.0-46.0); HGB 11.6 gm/dL (11.4-16.0); MCH 28.1 pg (25.0-35.0); MCHC 32.1 g/dL (31.0-37.0); MCV 87.5 fL (80.0-100.0); Mean Platelet Volume 8.2; Platelet Count 214 k/uL (150-450); RBC 4.12 m/uL (3.80-5.40); RDW 14.8 % (11.5-15.5); WBC 7.9 k/uL (3.8-10.6)
[2018-04-13 09:02] LABS: ALT 59 U/L (9-52); AST 52 U/L (14-36); Alkaline Phosphatase 162 U/L (38-126); Anion Gap 7 mmol/L; Blood Urea Nitrogen 21 mg/dL (7-17); Calcium 7.8 mg/dL (8.4-10.2); Carbon Dioxide 24 mmol/L (22-30); Chloride 109 mmol/L (98-107); Glucose 181 mg/dL (74-99); Potassium 4.3 mmol/L (3.5-5.1); Sodium 140 mmol/L (137-145); Total Bilirubin 0.5 mg/dL (0.2-1.3); Total Protein 6.3 g/dL (6.3-8.2)
--- NOTE | 2018-04-13 22:38 | P.PN ---
Subjective Principal diagnosis: Progress pneumonia The patient is here essentially because of significant problems related to patchy infiltrate. She states that she doesn't feel much improved since yesterday. I will go ahead and consult pulmonology for assistance. Chest x- ray will be pending today. Otherwise, known voiding difficulties. Some sleep issues stated. Appetite is nominal. Objective - Vital Signs Vital signs: Vital Signs Temp 98.5 F 04/13/18 14:42 Pulse 85 04/13/18 19:49 Resp 22 04/13/18 14:42 BP 110/46 04/13/18 14:42 Pulse Ox 95 04/13/18 15:22 Intake & Output 04/13/18 04/13/18 04/14/18 06:59 18:59 06:59 Intake Total 50 Balance 50 Intake: IV 50 cefTRIAXone 1,000 mg In 50 Sodium Chloride 0.9% 50 ml @ 100 mls/hr IVPB Q24HR [facility] Rx#:[id number] Other: Voiding Method Toilet # Voids 1 - Constitutional General appearance: Present: obese - EENT Eyes: Absent: abnormal pupil - Neck Neck: Absent: lymphadenopathy - Respiratory Respiratory: bilateral: diminished - Cardiovascular Rhythm: regular Heart sounds: normal: S1, S2 Abnormal Heart Sounds: Absent: S3 Gallop - Gastrointestinal General gastrointestinal: Present: soft. Absent: tenderness - Neurologic Neurologic: Present: CNII-XII intact - Labs CBC & Chem 7: 04/13/18 08:05 04/13/18 08:05 Labs: Abnormal Lab Results - Last 24 Hours (Table) 04/13/18 Range/Units 08:05 Chloride 109 H (98-107) mmol/L BUN 21 H (7-17) mg/dL Glucose 181 H (74-99) mg/dL Calcium 7.8 L (8.4-10.2) mg/dL AST 52 H (14-36) U/L ALT 59 H (9-52) U/L Alkaline Phosphatase 162 H (38-126) U/L Albumin 3.0 L (3.5-5.0) g/dL Microbiology - Last 24 Hours (Table) 04/08/18 13:22 Blood Culture - Preliminary Blood No Growth after 120 hours 04/12/18 Unknown Gram Stain - Preliminary Sputum Sputum Culture - Preliminary Assessment and Plan (1) Community acquired pneumonia Current Visit: Yes Status: Acute Code(s): J18.9 - PNEUMONIA, UNSPECIFIED ORGANISM SNOMED Code(s): 160694125 (2) Sepsis Current Visit: Yes Status: Acute Code(s): A41.9 - SEPSIS, UNSPECIFIED ORGANISM SNOMED Code(s): 46025812 Plan: Appreciate pulmonology input. Review CT scan. New per check CBC and CMP in a.m. Anticipate discharge in the next 24-48 hours. The patient seems to be finally proving clinically. Time with Patient: Less than 30
[2018-04-14] MEDS: LEVOTHYROXINE 75 MCG TAB PO SCH (05:38)
[2018-04-14] MEDS: IPRATROPIUM-ALBUTEROL 3 ML NEB INHALATION SCH ×4 (07:46→19:59)
[2018-04-14] MEDS: METOPROLOL TARTRATE 12.5 MG TAB PO SCH ×2 (08:03→20:02)
[2018-04-14] MEDS: methylPREDNISolone SOD SUCCI 125 MG/2 ML VIAL IV SCH ×3 (08:03→23:25)
[2018-04-14] MEDS: AZITHROMYCIN 500 MG TAB PO SCH (08:04)
--- NOTE | 2018-04-14 08:42 | P.PN ---
Subjective Principal diagnosis: Progress pneumonia The patient is here essentially because of significant problems related to patchy infiltrate. She states that she doesn't feel much improved since yesterday. I will go ahead and consult pulmonology for assistance. Otherwise, known voiding difficulties. Some sleep issues stated. Appetite is nominal. Overall, the patient states clinically improved. Objective - Vital Signs Vital signs: Vital Signs Temp 98.2 F 04/14/18 06:50 Pulse 84 04/14/18 08:02 Resp 18 04/14/18 06:50 BP 145/76 04/14/18 06:50 Pulse Ox 95 04/14/18 06:50 Intake & Output 04/13/18 04/14/18 04/14/18 18:59 06:59 18:59 Intake Total 50 800 Balance 50 800 Intake: IV 50 cefTRIAXone 1,000 mg In 50 Sodium Chloride 0.9% 50 ml @ 100 mls/hr IVPB Q24HR [facility] Rx#:[id number] Oral 800 Other: Voiding Method Toilet # Voids 2 - Constitutional General appearance: Present: no acute distress - EENT Eyes: Absent: abnormal pupil - Neck Neck: Absent: lymphadenopathy - Respiratory Respiratory: left: rhonchi - Cardiovascular Rhythm: regular Heart sounds: normal: S1, S2 Abnormal Heart Sounds: Absent: S3 Gallop - Gastrointestinal General gastrointestinal: Present: soft. Absent: tenderness - Neurologic Neurologic: Present: CNII-XII intact - Psychiatric Psychiatric: Absent: appropriate affect - Labs CBC & Chem 7: 04/13/18 08:05 04/13/18 08:05 Labs: Abnormal Lab Results - Last 24 Hours (Table) 04/13/18 Range/Units 08:05 Chloride 109 H (98-107) mmol/L BUN 21 H (7-17) mg/dL Glucose 181 H (74-99) mg/dL Calcium 7.8 L (8.4-10.2) mg/dL AST 52 H (14-36) U/L ALT 59 H (9-52) U/L Alkaline Phosphatase 162 H (38-126) U/L Albumin 3.0 L (3.5-5.0) g/dL Microbiology - Last 24 Hours (Table) 04/08/18 13:22 Blood Culture - Preliminary Blood No Growth after 120 hours Assessment and Plan (1) Community acquired pneumonia Current Visit: Yes Status: Acute Code(s): J18.9 - PNEUMONIA, UNSPECIFIED ORGANISM SNOMED Code(s): 796173725 (2) Sepsis Current Visit: Yes Status: Acute Code(s): A41.9 - SEPSIS, UNSPECIFIED ORGANISM SNOMED Code(s): 91002566 Plan: The patient will continue current regimen or treatment. Anticipate discharge in a.m. Appreciate pulmonology input. Time with Patient: Less than 30
--- NOTE | 2018-04-14 15:25 | P.PN ---
Subjective Progress Note Date: 04/14/18 Principal diagnosis: Perihilar pneumonia, acute asthma, tracheobronchitis, hypertension hypertensive cardiovascular disease, left pleural effusion, enlarged peripancreatic lymph node of unclear significance on CAT scan 04/14/2018, patient seen eval examined during the rounds her wheezing cuff congestion is improved she is breathing more comfortably respiratory status has improved patient continued to be on broad-spectrum antibiotics and the steroids , at the time of discharge will recommend to change it to oral Medrol Dosepak as well as a Z-Adrian as outpatient, patient will require nebulizer machine as well as bronchodilator on outpatient basis, I have reviewed the computed tomography scan finding with the patient at length including hazy nodular infiltrate in the left upper lobe as well as the right upper lobe and a follow- up computed tomography scan in about 3 months an outpatient basis, patient understood want to proceed with that 04/13/2018, patient seen evsahil examined during the rounds clinically slightly better wheezing has improved, patient is being treated with broad-spectrum antibiotics with IV Rocephin and oral Zithromax, computed tomography scan of the chest was performed which has been reviewed, left upper lobe infiltrates and peribronchial thinking are noted nodular infiltrate pattern was seen in the left upper lobe small faint ill-defined nodule in the right upper lobe was also noted findings are likely associated with pneumonia however patient will require a follow-up computed tomography scan in the future to document resolution as these finding would not be apparent on the regular chest x-ray, sputum culture results and reports also reviewed so far no bacterial predominance have been noted final culture results and reports are pending 82-year-old female was admitted into the hospital on 04/08/2018 with ongoing cough congestion shortness of breath of 3-4 day duration along with thick greenish sputum production, patient has based Medical prognosis hypertension and hypothyroidism and hypocalcemia, admitted chest x-ray revealed patchy perihilar infiltrates suggestive of pneumonia, patient was treated with steroids breathing treatment antibiotics with significant improvement however in the last 24 hours some decompensation has been noted patient has been more short of breath disease he continued to have greenish sputum production, during my evaluation patient was very short of breath with clear audible wheezing across the room, I was asked to resume IV steroids send a sputum for Gram stain and culture and obtain chest x-ray, patient was noted to have a patchy predominantly left-sided infiltrate and small pleural effusion noted as well, influenza A and B were both negative renal functions initially revealed GFR of 52% however now is normalized, currently patient is being treated with bronchodilators IV Rocephin and Zithromax and IV steroids with continuation of home medications Objective - Vital Signs Vital signs: Vital Signs Temp 98.2 F 04/14/18 06:50 Pulse 88 04/14/18 11:31 Resp 18 04/14/18 06:50 BP 145/76 04/14/18 06:50 Pulse Ox 95 04/14/18 06:50 Intake & Output 04/13/18 04/14/18 04/14/18 18:59 06:59 18:59 Intake Total 50 800 240 Balance 50 800 240 Weight 79.832 kg Intake: IV 50 cefTRIAXone 1,000 mg In 50 Sodium Chloride 0.9% 50 ml @ 100 mls/hr IVPB Q24HR [facility] Rx#:[id number] Oral 800 240 Other: Voiding Method Toilet # Voids 2 - Exam - Constitutional General appearance: average body habitus, cooperative, disheveled, mild distress - EENT Eyes: EOMI, PERRLA, poor dentition, normal appearance Ears: bilateral: normal - Neck Carotids: bilateral: upstroke normal Thyroid: bilateral: normal size - Respiratory Respiratory: bilateral: rales (Predominantly on the right side), rhonchi, wheezing (Very severe bilateral inspiratory expiratory), negative: CTA, diminished, dullness - Cardiovascular Rhythm: regular Heart sounds: normal: S1, S2 - Gastrointestinal General gastrointestinal: decreased bowel sounds, normal bowel sounds, soft - Neurologic Neurologic: CNII-XII intact - Musculoskeletal Musculoskeletal: gait normal, generalized weakness, strength equal bilaterally - Psychiatric Psychiatric: A&O x's 3, appropriate affect, intact judgment & insight - Labs CBC & Chem 7: 04/13/18 08:05 04/13/18 08:05 Labs: Microbiology - Last 24 Hours (Table) 04/08/18 13:22 Blood Culture - Preliminary Blood No Growth after 120 hours Assessment and Plan Assessment: Non-resolving pneumonia Left upper lobe as well as right upper lobe ill-defined nodular appearance likely pneumonia however occult neoplastic process cannot be excluded Mild exacerbation of CHF likely acute on chronic diastolic heart failure Small right-sided pleural effusion Acute asthma with asthma exacerbation Suspect ongoing chronic persistent asthma Remote history of smoking History of hypertension and hypertensive cardiovascular disease Plan: Continue IV Rocephin and oral Zithromax Continue IV steroids Breathing treatments Follow-up sputum for Gram stain and culture Patient would need a follow-up computed tomography scan in 2-3 months At the time of discharge patient can be switched to oral also will likely need require bronchodilator therapy and outpatient basis in the form of nebulizer as patient cannot do MDI very well given coordination issues as well as age Time with Patient: Greater than 30
[2018-04-15] MEDS: LEVOTHYROXINE 75 MCG TAB PO SCH (06:09)
[2018-04-15 07:28] VITALS: BP 149/73; TEMP 97.6
--- NOTE | 2018-04-15 07:49 | P.DS ---
Providers Date of admission: 04/08/18 14:55 Attending physician: Brian Zuluaga Consults: 04/12/18 07:01 Consult Physician Routine Consulting Provider: Keanu Stewart Consult Reason/Comments: Pneumonia Do you want consulting provider notified?: Yes Primary care physician: Brian Zuluaga - Discharge Diagnosis(es) (1) Community acquired pneumonia Current Visit: Yes Status: Acute (2) Sepsis Current Visit: Yes Status: Acute Hospital Course: This discharge summary 82-year-old white female essentially admitted for bilateral pneumonia. She is placed on appropriate antibiotic treatment and was stabilized appropriately. The patient will be discharged on appropriate antibiotic treatment and follow-up with me in about one week. Patient Condition at Discharge: Stable Plan - Discharge Summary Discharge Rx Participant: No New Discharge Prescriptions: New Metoprolol Tartrate [Lopressor] 12.5 mg PO BID #60 tab Cefuroxime Axetil [Ceftin] 500 mg PO BID #10 tab No Action Cholecalciferol [Vitamin D3] 1,000 unit PO DAILY amLODIPine [Norvasc] 5 mg PO DAILY Calcium Carbonate [Calcium] 600 mg PO DAILY Levothyroxine Sodium 150 mcg PO DAILY Discharge Medication List Calcium Carbonate [Calcium] 600 mg PO DAILY 04/08/18 [History] Cholecalciferol [Vitamin D3] 1,000 unit PO DAILY 04/08/18 [History] Levothyroxine Sodium 150 mcg PO DAILY 04/08/18 [History] amLODIPine [Norvasc] 5 mg PO DAILY 04/08/18 [History] Cefuroxime Axetil [Ceftin] 500 mg PO BID #10 tab 04/15/18 [Rx] Metoprolol Tartrate [Lopressor] 12.5 mg PO BID #60 tab 04/15/18 [Rx] Follow up Appointment(s)/Referral(s): Keanu Stewart MD [STAFF PHYSICIAN] - 1 Week Brian Zuluaga MD [Primary Care Provider] - 1 Week
[2018-04-15] MEDS: AZITHROMYCIN 500 MG TAB PO SCH (07:52)
[2018-04-15] MEDS: METOPROLOL TARTRATE 12.5 MG TAB PO SCH (07:52)
[2018-04-15] MEDS: methylPREDNISolone SOD SUCCI 125 MG/2 ML VIAL IV SCH ×2 (07:52→14:53)
[2018-04-15] MEDS: IPRATROPIUM-ALBUTEROL 3 ML NEB INHALATION SCH ×2 (08:06→11:34)
[2018-04-15 11:36] VITALS: RESP 14
[2018-04-15 11:43] VITALS: PULSE 80
--- NOTE | 2018-04-15 16:58 | P.PN ---
Subjective Progress Note Date: 04/15/18 Principal diagnosis: Perihilar pneumonia, acute asthma, tracheobronchitis, hypertension hypertensive cardiovascular disease, left pleural effusion, enlarged peripancreatic lymph node of unclear significance on CAT scan 04/15/2018, patient seen eval examined during the rounds clinically patient has been doing better in terms of breathing was still have the ongoing intermittent cough, prescription has been provided for tapering steroids in the form Medrol Dosepak as well as nebulizer machine and nebulizer medicine, patient did finish oral antibiotics as prescribed by the primary service, for respiratory standpoint patient has significantly improved patient wishes to go home him I agree with discharge planning with follow-up on outpatient setting as mentioned previously 04/14/2018, patient seen evsahil examined during the rounds her wheezing cuff congestion is improved she is breathing more comfortably respiratory status has improved patient continued to be on broad-spectrum antibiotics and the steroids , at the time of discharge will recommend to change it to oral Medrol Dosepak as well as a Z-Adrian as outpatient, patient will require nebulizer machine as well as bronchodilator on outpatient basis, I have reviewed the computed tomography scan finding with the patient at length including hazy nodular infiltrate in the left upper lobe as well as the right upper lobe and a follow- up computed tomography scan in about 3 months an outpatient basis, patient understood want to proceed with that 04/13/2018, patient seen eval examined during the rounds clinically slightly better wheezing has improved, patient is being treated with broad-spectrum antibiotics with IV Rocephin and oral Zithromax, computed tomography scan of the chest was performed which has been reviewed, left upper lobe infiltrates and peribronchial thinking are noted nodular infiltrate pattern was seen in the left upper lobe small faint ill-defined nodule in the right upper lobe was also noted findings are likely associated with pneumonia however patient will require a follow-up computed tomography scan in the future to document resolution as these finding would not be apparent on the regular chest x-ray, sputum culture results and reports also reviewed so far no bacterial predominance have been noted final culture results and reports are pending 82-year-old female was admitted into the hospital on 04/08/2018 with ongoing cough congestion shortness of breath of 3-4 day duration along with thick greenish sputum production, patient has based Medical prognosis hypertension and hypothyroidism and hypocalcemia, admitted chest x-ray revealed patchy perihilar infiltrates suggestive of pneumonia, patient was treated with steroids breathing treatment antibiotics with significant improvement however in the last 24 hours some decompensation has been noted patient has been more short of breath disease he continued to have greenish sputum production, during my evaluation patient was very short of breath with clear audible wheezing across the room, I was asked to resume IV steroids send a sputum for Gram stain and culture and obtain chest x-ray, patient was noted to have a patchy predominantly left-sided infiltrate and small pleural effusion noted as well, influenza A and B were both negative renal functions initially revealed GFR of 52% however now is normalized, currently patient is being treated with bronchodilators IV Rocephin and Zithromax and IV steroids with continuation of home medications Objective - Vital Signs Vital signs: Vital Signs Temp 97.6 F 04/15/18 06:10 Pulse 80 04/15/18 11:42 Resp 14 04/15/18 11:34 BP 149/73 04/15/18 06:10 Pulse Ox 95 04/15/18 08:09 Intake & Output 04/14/18 04/15/18 04/15/18 18:59 06:59 18:59 Intake Total 480 900 Balance 480 900 Weight 79.832 kg Intake: Oral 480 900 Other: Voiding Method Toilet Toilet # Voids 2 2 2 # Bowel Movements 0 - Exam - Constitutional General appearance: average body habitus, cooperative, disheveled, mild distress - EENT Eyes: EOMI, PERRLA, poor dentition, normal appearance Ears: bilateral: normal - Neck Carotids: bilateral: upstroke normal Thyroid: bilateral: normal size - Respiratory Respiratory: bilateral: rales (Predominantly on the right side), rhonchi, wheezing (Very severe bilateral inspiratory expiratory), negative: CTA, diminished, dullness - Cardiovascular Rhythm: regular Heart sounds: normal: S1, S2 - Gastrointestinal General gastrointestinal: decreased bowel sounds, normal bowel sounds, soft - Neurologic Neurologic: CNII-XII intact - Musculoskeletal Musculoskeletal: gait normal, generalized weakness, strength equal bilaterally - Psychiatric Psychiatric: A&O x's 3, appropriate affect, intact judgment & insight - Labs CBC & Chem 7: 04/13/18 08:05 04/13/18 08:05 Labs: Microbiology - Last 24 Hours (Table) 04/08/18 13:22 Blood Culture - Final Blood No Growth after 144 hours 04/12/18 Unknown Gram Stain - Final Sputum Sputum Culture - Final Assessment and Plan Assessment: Non-resolving pneumonia Left upper lobe as well as right upper lobe ill-defined nodular appearance likely pneumonia however occult neoplastic process cannot be excluded Mild exacerbation of CHF likely acute on chronic diastolic heart failure Small right-sided pleural effusion Acute asthma with asthma exacerbation Suspect ongoing chronic persistent asthma Remote history of smoking History of hypertension and hypertensive cardiovascular disease Plan: Prescription provided for the oral tapering steroids as well as nebulizer machine with nebulizer medicine Breathing treatments Patient would need a follow-up computed tomography scan in 2-3 months Time with Patient: Greater than 30
== END 2018-04-15 16:27 | disposition home or self-care (01) | DRG 871 ==
LOC: EC 12:47 → 4MS4W 14:55
PROVIDERS: ADMIT Family Medicine; ATTEND Family Medicine
DX: A41.9 Sepsis, unspecified organism (principal); J18.9 Pneumonia, unspecified organism; I50.33 Acute on chronic diastolic (congestive) heart failure; J44.0 Chronic obstructive pulmonary disease with (acute) lower respiratory infection; J44.1 Chronic obstructive pulmonary disease with (acute) exacerbation; E87.1 Hypo-osmolality and hyponatremia; N17.9 Acute kidney failure, unspecified; J45.901 Unspecified asthma with (acute) exacerbation; R65.20 Severe sepsis without septic shock; I11.0 Hypertensive heart disease with heart failure; E83.51 Hypocalcemia; K21.9 Gastro-esophageal reflux disease without esophagitis; M19.90 Unspecified osteoarthritis, unspecified site; E89.0 Postprocedural hypothyroidism; E66.9 Obesity, unspecified; Z68.33 Body mass index [BMI] 33.0-33.9, adult; Z79.890 Hormone replacement therapy; Z79.899 Other long term (current) drug therapy; Z90.710 Acquired absence of both cervix and uterus; Z98.890 Other specified postprocedural states; Z87.891 Personal history of nicotine dependence; Z90.49 Acquired absence of other specified parts of digestive tract; Z85.3 Personal history of malignant neoplasm of breast; Z85.41 Personal history of malignant neoplasm of cervix uteri; Z92.3 Personal history of irradiation; Z96.652 Presence of left artificial knee joint; Z98.42 Cataract extraction status, left eye; Z98.41 Cataract extraction status, right eye; Z96.1 Presence of intraocular lens; Z88.2 Allergy status to sulfonamides; Z80.9 Family history of malignant neoplasm, unspecified
CPT/HCPCS: 36415; 71046; 71275; 80048; 80053; 83605; 83735; 85025; 85027; 85610; 85730; 87040; 87070; 87205; 87502; 93005; 94640; 94760; 96365; 96366; 96368; 99285

== ENCOUNTER → 2019-01-06 | Outpatient (CLI) | payer MEDICARE ==
--- NOTE | 2019-01-09 08:32 | MM ---
Reason for exam: screening (asymptomatic). Last mammogram was performed 1 year and 1 month ago. History: Patient is postmenopausal, has history of breast cancer at age 70, and has history of other cancer at age 70. Family history of breast cancer in mother at age 39, breast cancer in aunt at age 48, and breast cancer in daughter at age 47. Malignant lumpectomy of the right breast, 2006. Radiation therapy of the right breast, 2006. Excisional biopsy of the left breast, 1992. Took estrogen for 6 months beginning at age 33. Physical Findings: A clinical breast exam by your physician is recommended on an annual basis and results should be correlated with mammographic findings. MG Screening Mammo w CAD Bilateral CC and MLO view(s) were taken. Prior study comparison: November 24, 2017, bilateral MG screening mammo w CAD. October 15, 2016, bilateral MG diagnostic mammo w CAD [facility]. There are scattered fibroglandular densities. Finding #1: There is a 5 mm equal density (isodense) mass in the subareolar position of the right breast. Finding #2: There are typically benign calcifications in both breasts. Stable post surgical changes in the right breast. ASSESSMENT: Incomplete: need additional imaging evaluation, BI-RAD 0 RECOMMENDATION: Special view mammogram of the right breast. If lesion persists on supplemental views, image directed ultrasound is recommended. [facility] will attempt to contact patient to return for supplemental views and ultrasound if indicated.
== END | disposition home or self-care (01) ==
LOC: RADMAMWWP 09:21
PROVIDERS: ATTEND Family Medicine
DX: Z12.31 Encounter for screening mammogram for malignant neoplasm of breast (principal)
CPT/HCPCS: 77067

== ENCOUNTER → 2019-01-17 | Outpatient (CLI) | payer MEDICARE ==
--- NOTE | 2019-01-17 14:46 | MM ---
Reason for exam: additional evaluation requested from abnormal screening. Last mammogram was performed less than 1 month ago. History: Patient is postmenopausal, has history of breast cancer at age 70, and has history of other cancer at age 70. Family history of breast cancer in mother at age 39, breast cancer in aunt at age 48, and breast cancer in daughter at age 47. Malignant lumpectomy of the right breast, 2006. Radiation therapy of the right breast, 2006. Excisional biopsy of the left breast, 1992. Took estrogen for 6 months beginning at age 33. Physical Findings: Nurse did not find any significant physical abnormalities on exam. MG Work Up Mamm w CAD RT Spot compression CC, spot compression MLO, and LM view(s) were taken of the right breast. Prior study comparison: January 06, 2019, bilateral MG screening mammo w CAD. November 24, 2017, bilateral MG screening mammo w CAD. There are scattered fibroglandular densities. No distinct lesion persists on additional views. These results were verbally communicated with the patient and result sheet given to the patient on 01/17/19. ASSESSMENT: Benign, BI-RAD 2 RECOMMENDATION: Return to routine screening mammogram schedule for both breasts.
== END | disposition home or self-care (01) ==
LOC: RADMAMWWP 13:57
PROVIDERS: ATTEND Family Medicine
DX: R92.8 Other abnormal and inconclusive findings on diagnostic imaging of breast (principal)
CPT/HCPCS: 77065

== ENCOUNTER → 2020-02-01 | Outpatient (CLI) | payer MEDICARE ==
--- NOTE | 2020-02-05 09:05 | MM ---
Reason for exam: screening (asymptomatic). Last mammogram was performed 1 year ago. History: Patient is postmenopausal, has history of breast cancer at age 70, and has history of other cancer at age 70. Family history of breast cancer in mother at age 39, breast cancer in aunt at age 48, and breast cancer in daughter at age 47. Malignant lumpectomy of the right breast, 2006. Radiation therapy of the right breast, 2006. Excisional biopsy of the left breast, 1992. Took estrogen for 6 months beginning at age 33. Physical Findings: A clinical breast exam by your physician is recommended on an annual basis and results should be correlated with mammographic findings. MG Screening Mammo w CAD Bilateral CC and MLO view(s) were taken. XCCL view(s) were taken of the left breast. Prior study comparison: January 17, 2019, right breast MG work up mamm w CAD RT. January 06, 2019, bilateral MG screening mammo w CAD. There are scattered fibroglandular densities. No significant changes when compared with prior studies. ASSESSMENT: Benign, BI-RAD 2 RECOMMENDATION: Routine screening mammogram of both breasts in 1 year.
== END | disposition home or self-care (01) ==
LOC: RADMAMWWP 10:52
PROVIDERS: ATTEND Family Medicine
DX: Z12.31 Encounter for screening mammogram for malignant neoplasm of breast (principal)
CPT/HCPCS: 77067

== ENCOUNTER 2020-03-25 09:07 | Inpatient (IN) | payer MEDICARE, OTHER ==
[2020-03-25] MEDS ORDERED: SODIUM CHLORIDE 0.9% 500 ML 500 ML IV STA (09:14)
--- NOTE | 2020-03-25 09:18 | ED ---
General Adult HPI - General Chief complaint: Weakness Stated complaint: weakness Time Seen by Provider: 03/25/20 09:09 Source: patient, RN notes reviewed, old records reviewed Mode of arrival: ambulatory Limitations: no limitations - History of Present Illness Initial comments: 84-year-old female presents to the emergency department with increased weakness. Patient is able to give some historical details but is uncertain exactly why she is here. Uncertain if this is the patient's baseline mental status. She denies any current complaints, no chest pain, no headache, no focal numbness or weakness. She does states she had an episode of chest pressure 4 days ago. She was transported by EMS for evaluation of increased weakness. No fever. She has not been eating well but according to family she has been drinking. No reported vomiting. No cough or dyspnea. - Related Data Home Medications Medication Instructions Recorded Confirmed Calcium Carbonate [Calcium] 600 mg PO DAILY 04/08/18 04/08/18 Cholecalciferol [Vitamin D3] 1,000 unit PO DAILY 04/08/18 04/08/18 Levothyroxine Sodium 150 mcg PO DAILY 04/08/18 04/08/18 amLODIPine [Norvasc] 5 mg PO DAILY 04/08/18 04/08/18 Previous Rx's Medication Instructions Recorded Cefuroxime Axetil [Ceftin] 500 mg PO BID #10 tab 04/15/18 Ipratropium-Albuterol Nebulize 3 ml INHALATION TID #90 neb 04/15/18 [Duoneb 0.5 mg-3 mg/3 ml Soln] Metoprolol Tartrate [Lopressor] 12.5 mg PO BID #60 tab 04/15/18 methylPREDNISolone Dose Pack 4 mg PO DIRECTED #21 package 04/15/18 [Medrol Dose Pack] Allergies Allergy/AdvReac Type Severity Reaction Status Date / Time Sulfa (Sulfonamide Allergy Unknown Verified 03/25/20 09:14 Antibiotics) Review of Systems ROS Statement: Those systems with pertinent positive or pertinent negative responses have been documented in the HPI. ROS Other: All systems not noted in ROS Statement are negative. 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 hx lt breast cancer had lumpectomy/radiation, cervical cancer 1970-sx done, thyroidectomy" History of Any Multi-Drug Resistant Organisms: None Reported Past Surgical History: Appendectomy, Bladder Surgery, Breast Surgery, Cholecystectomy, Hysterectomy, Tonsillectomy Additional Past Surgical History / Comment(s): thyroidectomy, rt breast lump ectomy, enma cataracts removed-lens implants, lt knee replacment Past Anesthesia/Blood Transfusion Reactions: No Reported Reaction Additional Past Anesthesia/Blood Transfusion Reaction / Comment(s): never had a blood transfusions Past Psychological History: No Psychological Hx Reported Past Alcohol Use History: None Reported Past Drug Use History: None Reported - Past Family History Mother Family Medical History: Cancer Additional Family Medical History / Comment(s): from metastatic cancer age 41 Father Family Medical History: Cancer Additional Family Medical History / Comment(s): ge 54 General Exam Limitations: no limitations General appearance: alert, in no apparent distress Head exam: Present: atraumatic, normocephalic Eye exam: Present: normal appearance, PERRL ENT exam: Present: mucous membranes dry Neck exam: Present: normal inspection Respiratory exam: Present: normal lung sounds bilaterally. Absent: respiratory distress, wheezes Cardiovascular Exam: Present: regular rate, normal rhythm GI/Abdominal exam: Present: soft. Absent: distended, tenderness, guarding Extremities exam: Present: normal inspection, normal capillary refill. Absent: pedal edema Neurological exam: Present: alert. Absent: motor sensory deficit Psychiatric exam: Present: normal affect, normal mood Skin exam: Present: warm, dry, intact. Absent: cyanosis, diaphoretic Course Vital Signs 03/25/20 03/25/20 03/25/20 09:08 10:00 11:00 Temperature 98.8 F Pulse Rate 75 66 60 Respiratory 18 16 16 Rate Blood Pressure 170/99 153/89 205/90 O2 Sat by Pulse 98 96 98 Oximetry - Reevaluation(s) Reevaluation #1: 03/25/20 11:18 Patient resting, no complaints, no chest pain. EKG Findings - EKG Comments: EKG Findings:: EKG: Sinus rhythm with first-degree AV block, left atrial enlargement, left axis, rate of 71, PA interval 226, QRS duration 96, QTC 419. No ST segment elevation. Medical Decision Making - Medical Decision Making 84-year-old female with generalized weakness. Patient did have an episode of chest discomfort which was 4 days prior. She has no active chest pain. Workup is initiated, EKG revealed sinus rhythm with no ST segment elevation. Chest x- rays negative for acute cardiopulmonary disease. Head CT negative for intracranial hemorrhage or mass effect. She has a normal CBC, stable hemoglobin, she has acute kidney injury with a creatinine of 2.7, she is hypercalcemic calcium of 14, ionized calcium is 7.4. Additionally she has an elevated troponin at .14. She started on IV fluids, IV heparin. Case discussed with Dr. Zuluaga who will admit. Cardiology will be placed on consult. Nephrology has been placed on consult and has been paged. - Lab Data Result diagrams: 03/25/20 09:22 03/25/20 09:22 Lab Results 03/25/20 03/25/20 03/25/20 Range/Units 09:22 09:22 09:22 WBC 6.0 (3.8-10.6) k/uL RBC 3.90 (3.80-5.40) m/uL Hgb 11.4 (11.4-16.0) gm/dL Hct 34.9 (34.0-46.0) % MCV 89.5 (80.0-100.0) fL MCH 29.2 (25.0-35.0) pg MCHC 32.6 (31.0-37.0) g/dL RDW 13.3 (11.5-15.5) % Plt Count 138 L (150-450) k/uL MPV 8.6 Neutrophils % 53 % Lymphocytes % 37 % Monocytes % 6 % Eosinophils % 2 % Basophils % 0 % Neutrophils # 3.2 (1.3-7.7) k/uL Lymphocytes # 2.2 (1.0-4.8) k/uL Monocytes # 0.4 (0-1.0) k/uL Eosinophils # 0.1 (0-0.7) k/uL Basophils # 0.0 (0-0.2) k/uL PT 10.6 (9.0-12.0) sec INR 1.0 (<1.2) APTT 20.3 L (22.0-30.0) sec Sodium 138 (137-145) mmol/L Potassium 3.8 (3.5-5.1) mmol/L Chloride 103 (98-107) mmol/L Carbon Dioxide 29 (22-30) mmol/L Anion Gap 6 mmol/L BUN 64 H (7-17) mg/dL Creatinine 2.79 H (0.52-1.04) mg/dL Est GFR (CKD-EPI)AfAm 18 (>60 ml/min/1.73 sqM) Est GFR (CKD-EPI)NonAf 15 (>60 ml/min/1.73 sqM) Glucose 100 H (74-99) mg/dL Plasma Lactic Acid Shaan (0.7-2.0) mmol/L Calcium 14.1 H* (8.4-10.2) mg/dL Ionized Calcium Destiny (4.5-5.3) mg/dL Magnesium 1.8 (1.6-2.3) mg/dL Total Bilirubin 0.8 (0.2-1.3) mg/dL AST 46 H (14-36) U/L ALT 26 (4-34) U/L Alkaline Phosphatase 112 (38-126) U/L Troponin I (0.000-0.034) ng/mL Total Protein 6.9 (6.3-8.2) g/dL Albumin 3.7 (3.5-5.0) g/dL 03/25/20 03/25/20 03/25/20 Range/Units 09:22 09:22 10:45 WBC (3.8-10.6) k/uL RBC (3.80-5.40) m/uL Hgb (11.4-16.0) gm/dL Hct (34.0-46.0) % MCV (80.0-100.0) fL MCH (25.0-35.0) pg MCHC (31.0-37.0) g/dL RDW (11.5-15.5) % Plt Count (150-450) k/uL MPV Neutrophils % % Lymphocytes % % Monocytes % % Eosinophils % % Basophils % % Neutrophils # (1.3-7.7) k/uL Lymphocytes # (1.0-4.8) k/uL Monocytes # (0-1.0) k/uL Eosinophils # (0-0.7) k/uL Basophils # (0-0.2) k/uL PT (9.0-12.0) sec INR (<1.2) APTT (22.0-30.0) sec Sodium (137-145) mmol/L Potassium (3.5-5.1) mmol/L Chloride (98-107) mmol/L Carbon Dioxide (22-30) mmol/L Anion Gap mmol/L BUN (7-17) mg/dL Creatinine (0.52-1.04) mg/dL Est GFR (CKD-EPI)AfAm (>60 ml/min/1.73 sqM) Est GFR (CKD-EPI)NonAf (>60 ml/min/1.73 sqM) Glucose (74-99) mg/dL Plasma Lactic Acid Shaan 0.9 (0.7-2.0) mmol/L Calcium (8.4-10.2) mg/dL Ionized Calcium Destiny 7.4 H* (4.5-5.3) mg/dL Magnesium (1.6-2.3) mg/dL Total Bilirubin (0.2-1.3) mg/dL AST (14-36) U/L ALT (4-34) U/L Alkaline Phosphatase (38-126) U/L Troponin I 0.147 H* (0.000-0.034) ng/mL Total Protein (6.3-8.2) g/dL Albumin (3.5-5.0) g/dL Critical Care Time Critical Care Time: Yes Total Critical Care Time: 35 Disposition Clinical Impression: Acute renal failure, Hypercalcemia, NSTEMI (non-ST elevated myocardial infarction) Disposition: ADMITTED IP TO THIS [facility] Condition: Stable Is patient prescribed a controlled substance at d/c from ED?: No Referrals: Brian Zuluaga MD [Primary Care Provider] - 1-2 days Decision to Admit Reason: Admit from EC Decision Date: 03/18/20 Decision Time: 11:21
[2020-03-25 09:39] LABS: Basophils % (A) 0 %; Eosinophils # (A) 0.1 k/uL (0-0.7); Eosinophils % (A) 2 %; HCT 34.9 % (34.0-46.0); HGB 11.4 gm/dL (11.4-16.0); Lymphocytes # (A) 2.2 k/uL (1.0-4.8); Lymphocytes % (A) 37 %; MCH 29.2 pg (25.0-35.0); MCHC 32.6 g/dL (31.0-37.0); MCV 89.5 fL (80.0-100.0); Mean Platelet Volume 8.6; Monocytes # (A) 0.4 k/uL (0-1.0); Monocytes % (A) 6 %; Neutrophils # (A) 3.2 k/uL (1.3-7.7); Neutrophils % (A) 53 %; Platelet Count 138 k/uL (150-450); RDW 13.3 % (11.5-15.5)
--- NOTE | 2020-03-25 09:49 | CT ---
EXAMINATION TYPE: CT brain wo con DATE OF EXAM: 03/25/2020 HISTORY: increased weakness CT DLP: 1066.4 mGycm. Automated Exposure Control for Dose Reduction was Utilized. TECHNIQUE: CT scan of the head is performed without contrast. COMPARISON: None. FINDINGS: There is no acute intracranial hemorrhage or midline shift identified. There is diffuse v entricular and sulcal prominence consistent with diffuse age-related cerebral atrophy. There is more prominent low-attenuation in the deep and periventricular white matter consistent with chronic small vessel ischemic change. The globes are intact and the visualized sinuses are clear. IMPRESSION: No acute intracranial hemorrhage or midline shift. There is mild diffuse age-related ce rebral atrophy and moderate to advanced chronic small vessel ischemic change noted.
[2020-03-25 09:52] LABS: Albumin 3.7 g/dL (3.5-5.0); Magnesium 1.8 mg/dL (1.6-2.3); Potassium 3.8 mmol/L (3.5-5.1); Total Bilirubin 0.8 mg/dL (0.2-1.3); Total Protein 6.9 g/dL (6.3-8.2)
--- NOTE | 2020-03-25 09:58 | XR ---
EXAMINATION TYPE: XR chest 2V DATE OF EXAM: 03/25/2020 COMPARISON: Chest x-ray and CT chest April 12, 2018 HISTORY: Weakness. TECHNIQUE: Frontal and lateral views of the chest are obtained. FINDINGS: There is chronic emphysematous and pulmonary fibrotic changes without suspicious new focal air space opacity, pleural effusion, or pneumothorax seen. The cardiac silhouette size is stable an d upper limits of normal with atherosclerotic change in the aortic knob. Multilevel spurring in the m idthoracic spine. IMPRESSION: Chronic changes without acute process currently.
[2020-03-25 10:04] LABS: Prothrombin Time 10.6 sec (9.0-12.0)
[2020-03-25 10:10] LABS: Partial Thromboplastin Time 20.3 sec (22.0-30.0)
[2020-03-25 10:24] LABS: Calcium 14.1 mg/dL (8.4-10.2)
[2020-03-25] MEDS ORDERED: SODIUM CHLORIDE 0.9% 500 ML 500 ML IV ONE (10:35)
[2020-03-25] MEDS ORDERED: ASPIRIN 325 MG TAB PO STA (10:53)
[2020-03-25] MEDS ORDERED: HEPARIN SODIUM,PORCINE 5,000 UNIT/ML 1 ML VIAL IV ONE (10:53)
[2020-03-25] MEDS ORDERED: HEPARIN SODIUM,PORCINE 5,000 UNIT/ML 1 ML VIAL IV PRN (10:53)
[2020-03-25] MEDS: SODIUM CHLORIDE 0.9% 1,000 ML IV SCH ×2 (10:56→22:07)
[2020-03-25 11:06] LABS: Potassium 3.5 mmol/L (3.5-5.1)
[2020-03-25 11:07] LABS: Ionized Calcium 7.4 mg/dL (4.5-5.3)
[2020-03-25] MEDS: HEPARIN SOD,PORK IN 0.45% NACL 25,000 UNIT in 0.45% NACL 1 250ML.BAG IV SCH (11:13)
[2020-03-25] MEDS ORDERED: NALOXONE 0.4 MG/ML 1 ML VIAL IV PRN (11:15)
[2020-03-25] MEDS ORDERED: ACETAMINOPHEN TAB 325 MG TAB PO PRN (11:15)
[2020-03-25 11:39] LABS: Calcium 13.5 mg/dL (8.4-10.2)
[2020-03-25] MEDS ORDERED: DICLOFENAC SODIUM GEL 100 GM TUBE TOPICAL PRN (14:04)
[2020-03-25] MEDS ORDERED: ALBUTEROL NEBULIZED 2.5 MG/3 ML INHALATION PRN (14:04)
[2020-03-25] MEDS: IPRATROPIUM-ALBUTEROL 3 ML NEB INHALATION SCH ×2 (16:04→21:27)
[2020-03-25] MEDS: LEVOTHYROXINE 137 MCG TAB PO SCH (17:50)
[2020-03-25] MEDS: amLODIPine 5 MG TAB PO SCH (17:52)
[2020-03-25 19:27] LABS: Calcium 12.9 mg/dL (8.4-10.2); Potassium 3.6 mmol/L (3.5-5.1)
[2020-03-25] MEDS: METOPROLOL TARTRATE 50 MG TAB PO SCH (22:27)
[2020-03-26] MEDS: LEVOTHYROXINE 137 MCG TAB PO SCH (06:10)
[2020-03-26] MEDS: SODIUM CHLORIDE 0.9% 1,000 ML IV SCH ×4 (06:11→22:54)
--- NOTE | 2020-03-26 08:14 | P.HPIM ---
History of Present Illness H&P Date: 03/26/20 Chief Complaint: Weakness. This is a history and physical an 84-year-old white female who was having some dyspnea but did not look good to her daughter. She was having difficulty ambulating. She did not describe any pain or diaphoresis. She does not describe any nausea but was appropriately admitted after having elevated troponin and EKG changes. The patient seems comfortable and has no edema. She is now admitted for an NSTEMI Review of Systems Constitutional: Denies chills, Denies fever Eyes: denies blurred vision, denies pain Ears, nose, mouth and throat: Denies headache, Denies sore throat Cardiovascular: Denies chest pain, Denies shortness of breath Respiratory: Denies cough Past Medical History Past Medical History: Cancer, GERD/Reflux, Hypertension, Osteoarthritis (OA), Pneumonia, Thyroid Disorder Additional Past Medical History / Comment(s): hx lt breast cancer had lumpectomy/radiation, cervical cancer 1970-sx done, thyroidectomy" History of Any Multi-Drug Resistant Organisms: None Reported Past Surgical History: Appendectomy, Bladder Surgery, Breast Surgery, Cholecystectomy, Hysterectomy, Tonsillectomy Additional Past Surgical History / Comment(s): thyroidectomy, rt breast lumpectomy, enma cataracts removed-lens implants, lt knee replacment Past Anesthesia/Blood Transfusion Reactions: No Reported Reaction Additional Past Anesthesia/Blood Transfusion Reaction / Comment(s): never had a blood transfusions Smoking Status: Former smoker - Past Family History Mother Family Medical History: Cancer Additional Family Medical History / Comment(s): from metastatic cancer age 41 Father Family Medical History: Cancer Additional Family Medical History / Comment(s): ge 54 Medications and Allergies Home Medications Medication Instructions Recorded Confirmed Type Cholecalciferol [Vitamin D3] 1,000 unit PO DAILY 04/08/18 03/25/20 History amLODIPine [Norvasc] 5 mg PO DAILY 04/08/18 03/25/20 History Albuterol Sulfate [Ventolin HFA] 2 puff INHALATION RT-QID PRN 03/25/20 03/25/20 History Diclofenac Sodium [Voltaren Gel] 2 gram TOPICAL QID PRN 03/25/20 03/25/20 History Ibuprofen [Motrin] 600 mg PO TID PRN 03/25/20 03/25/20 History Ipratropium-Albuterol Nebulize 3 ml INHALATION RT-QID 03/25/20 03/25/20 History [Duoneb 0.5 mg-3 mg/3 ml Soln] Levothyroxine Sodium [Synthroid] 137 mcg PO DAILY 03/25/20 03/25/20 History carBAMazepine CHEW [TEGretol CHEW] 100 mg PO Q12H 03/25/20 03/25/20 History Allergies Allergy/AdvReac Type Severity Reaction Status Date / Time cat dander Allergy Dyspnea Verified 03/25/20 11:28 dog dander Allergy Dyspnea Verified 03/25/20 11:28 pollen extracts Allergy Dyspnea Verified 03/25/20 11:28 Sulfa (Sulfonamide AdvReac Abdominal Verified 03/25/20 11:22 Antibiotics) Pain Physical Exam Vitals: Vital Signs Temp Pulse Pulse Resp BP BP Pulse Ox 03/26/20 03:23 98.1 F 54 L 18 164/72 95 03/26/20 02:00 82 18 03/25/20 23:51 98.0 F 82 18 149/80 95 03/25/20 22:25 188/81 03/25/20 21:36 70 03/25/20 21:27 70 03/25/20 20:00 98.1 F 67 18 187/73 97 03/25/20 16:30 65 18 03/25/20 16:14 74 03/25/20 16:04 72 03/25/20 16:00 98.4 F 65 18 171/77 96 03/25/20 12:15 65 18 03/25/20 12:05 98.4 F 55 L 18 192/91 97 03/25/20 11:52 98.8 F 62 18 113/91 96 03/25/20 11:25 62 18 113/91 96 03/25/20 11:00 60 16 205/90 98 03/25/20 10:00 66 16 153/89 96 03/25/20 09:08 98.8 F 75 18 170/99 98 Intake and Output 03/25/20 03/26/20 03/26/20 22:59 06:59 14:59 Intake Total 56.667 400 Output Total 200 Balance 56.667 200 Intake: Intake, IV Titration 56.667 400 Amount Heparin Sod,Pork in 0.45% 56.667 NaCl 25,000 unit In 0.45 % NaCl 1 250ml.bag @ 12 UNITS/KG/HR 8.763 mls/hr IV .Q24H [facility] Rx#: [id number] Sodium Chloride 0.9% 1, 400 000 ml @ 150 mls/hr IV . Q6H40M [facility] Rx#:[id number] Output: Urine 200 Other: Voiding Method Bedside Commode Bedside Commode # Voids 1 1 Weight 77.9 kg - Constitutional General appearance: average body habitus, cooperative, no acute distress - EENT Eyes: EOMI - Neck Neck: no lymphadenopathy - Respiratory Respiratory: bilateral: diminished - Cardiovascular Rhythm: regular Heart sounds: normal: S1, S2 Abnormal Heart Sounds: no S3 Gallop - Gastrointestinal General gastrointestinal: soft, no tenderness - Integumentary Integumentary: no cellulitis - Psychiatric Psychiatric: no intact judgment & insight Results CBC & Chem 7: 03/25/20 09:22 03/25/20 16:24 Labs: Abnormal Lab Results - Last 24 Hours (Table) 03/25/20 03/25/20 03/25/20 Range/Units 09:22 09:22 09:22 Plt Count 138 L (150-450) k/uL APTT 20.3 L (22.0-30.0) sec BUN 64 H (7-17) mg/dL Creatinine 2.79 H (0.52-1.04) mg/dL Glucose 100 H (74-99) mg/dL Calcium 14.1 H* (8.4-10.2) mg/dL Ionized Calcium Destiny (4.5-5.3) mg/dL AST 46 H (14-36) U/L Troponin I (0.000-0.034) ng/mL 03/25/20 03/25/20 03/25/20 Range/Units 09:22 10:45 12:14 Plt Count (150-450) k/uL APTT (22.0-30.0) sec BUN 61 H (7-17) mg/dL Creatinine 2.72 H (0.52-1.04) mg/dL Glucose (74-99) mg/dL Calcium 13.5 H* (8.4-10.2) mg/dL Ionized Calcium Destiny 7.4 H* (4.5-5.3) mg/dL AST (14-36) U/L Troponin I 0.147 H* 0.134 H* (0.000-0.034) ng/mL 03/25/20 03/25/20 03/25/20 Range/Units 16:24 16:24 16:24 Plt Count (150-450) k/uL APTT 173.1 H* (22.0-30.0) sec BUN 60 H (7-17) mg/dL Creatinine 2.56 H (0.52-1.04) mg/dL Glucose 105 H (74-99) mg/dL Calcium 12.9 H (8.4-10.2) mg/dL Ionized Calcium Destiny (4.5-5.3) mg/dL AST (14-36) U/L Troponin I 0.128 H* (0.000-0.034) ng/mL 03/26/20 Range/Units 00:35 Plt Count (150-450) k/uL APTT 60.0 H (22.0-30.0) sec BUN (7-17) mg/dL Creatinine (0.52-1.04) mg/dL Glucose (74-99) mg/dL Calcium (8.4-10.2) mg/dL Ionized Calcium Destiny (4.5-5.3) mg/dL AST (14-36) U/L Troponin I (0.000-0.034) ng/mL Thrombosis Risk Factor Assmnt - Choose All That Apply Any of the Below Risk Factors Present?: Yes Each Factor Represents 1 point: Obesity (BMI >25) Other Risk Factors: Yes Each Risk Factor Represents 3 Points: Age 75 years or older Other congenital or acquired thrombophilia - If yes, enter type in comment: No Thrombosis Risk Factor Assessment Total Risk Factor Score: 4 Thrombosis Risk Factor Assessment Level: Moderate Risk Assessment and Plan (1) Hypercalcemia Current Visit: Yes Status: Acute Code(s): E83.52 - HYPERCALCEMIA SNOMED Code(s): 08059794 (2) NSTEMI (non-ST elevated myocardial infarction) Current Visit: Yes Status: Acute Code(s): I21.4 - NON-ST ELEVATION (NSTEMI) MYOCARDIAL INFARCTION SNOMED Code(s): 96442916 (3) Asthma Current Visit: No Status: Acute Code(s): J45.909 - UNSPECIFIED ASTHMA, UNCOMPLICATED SNOMED Code(s): 245727102 Plan: Continue heparin. Await cardiology input. Reconcile medications. Check CBC and CMP in a.m. See orders otherwise.
[2020-03-26 08:29] LABS: Basophils % (A) 0 %; Eosinophils # (A) 0.2 k/uL (0-0.7); Eosinophils % (A) 3 %; HCT 30.1 % (34.0-46.0); Lymphocytes # (A) 1.6 k/uL (1.0-4.8); Lymphocytes % (A) 27 %; MCH 29.8 pg (25.0-35.0); MCHC 33.1 g/dL (31.0-37.0); MCV 89.9 fL (80.0-100.0); Mean Platelet Volume 8.4; Monocytes # (A) 0.3 k/uL (0-1.0); Monocytes % (A) 5 %; Neutrophils # (A) 3.7 k/uL (1.3-7.7); Neutrophils % (A) 62 %; Platelet Count 137 k/uL (150-450); RBC 3.35 m/uL (3.80-5.40); RDW 13.4 % (11.5-15.5)
[2020-03-26] MEDS: IPRATROPIUM-ALBUTEROL 3 ML NEB INHALATION SCH ×4 (09:42→20:09)
[2020-03-26] MEDS: amLODIPine 5 MG TAB PO SCH (10:03)
[2020-03-26] MEDS: CHOLECALCIFEROL 1,000 UNIT TAB PO SCH (10:03)
[2020-03-26] MEDS: METOPROLOL TARTRATE 50 MG TAB PO SCH (10:04)
--- NOTE | 2020-03-26 13:23 | P.CRDCN ---
History of Present Illness Consult date: 03/26/20 History of present illness: CHIEF COMPLAINT: Abnormal troponins HISTORY OF PRESENT ILLNESS: This is a 84-year-old female with a past medical history significant for GERD, hypertension, hypothyroidism, and breast cancer. 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 We have been asked to see the patient in consultation for abnormal troponins. Patient was apparently brought to the hospital secondary to weakness and altered mental status. Patient was found to be in acute renal failure with a creatinine of 2.79. Patient denies NSAID use or any new medications. Patient was found to have abnormal troponins in the emergency room and was started on IV heparin. Patient was started on metoprolol 50 mg twice a day by internal medicine. She is sinus bradycardic with a heart rate in the 50s. Patient denies any chest pain or pressure. She reports mild shortness of breath which she states she has had for years. Denies dizziness or lightheadedness. Denies nausea or vomiting. DIAGNOSTICS: EKG reveals sinus mechanism with first-degree AV block. T-wave inversions in leads III, V2 and V3. Patient had T-wave inversions in leads 3 and V2 in 2019. Chest xray chronic changes without acute process Laboratory data: WBC 6.0. Hemoglobin 10.0. Platelet count 137. Sodium 138. Potassium 3.6. BUN 60. Creatinine 2.56. Calcium 13.5. Troponin 0.147. 0.134. 0.128. Current home cardiac medications include amlodipine 5 mg daily REVIEW OF SYSTEMS: At the time of my exam: CONSTITUTIONAL: Denies fever or chills. HEENT: Denies blurred vision, vision changes, or eye pain. Denies hemoptysis CARDIOVASCULAR: Denies chest pain, orthopnea, PND or palpitations RESPIRATORY: No shortness of breath. GASTROINTESTINAL: Denies abdominal pain. Denies nausea or vomiting. HEMATOLOGIC: Denies bleeding disorders. GENITOURINARY: Denies any blood in urine. SKIN: Denies pruitis. Denies rash. PHYSICAL EXAM: VITAL SIGNS: Reviewed. GENERAL: Well-developed in no acute distress. HEENT: Head is normocephalic. Pupils are equal, round. Sclerae anicteric. Mucous membranes of the mouth are moist. Neck supple. No JVD or thyromegaly LUNGS: Respirations even and unlabored. Lungs essentially clear to auscultation bilaterally. HEART: Regular rate and rhythm. S1 and S2 heard. ABDOMEN: Soft. Nondistended. Nontender. EXTREMITIES: Normal range of motion. No clubbing or cyanosis. Peripheral pulses intact. No lower extremity edema NEUROLOGIC: Awake and alert. Oriented x 2. ASSESSMENT: Generalized weakness Acute renal failure Abnormal troponins, suspect secondary to acute renal failure, patient without chest pain or acute EKG changes Hypertension Osteoarthritis PLAN: Obtain 2-D echo to assess cardiac structure and function Continue IV heparin for another 24 hours Decrease metoprolol to 25 mg twice a day. Continue telemetry monitoring Further recommendations pending patient's course Nurse practitioner note has been reviewed by physician. Signing provider agrees with the documented findings, assessment, and plan of care. Past Medical History Past Medical History: Cancer, GERD/Reflux, Hypertension, Osteoarthritis (OA), Pneumonia, Thyroid Disorder Additional Past Medical History / Comment(s): hx lt breast cancer had lumpectomy/radiation, cervical cancer 1970-sx done, thyroidectomy" History of Any Multi-Drug Resistant Organisms: None Reported Past Surgical History: Appendectomy, Bladder Surgery, Breast Surgery, Cholecystectomy, Hysterectomy, Tonsillectomy Additional Past Surgical History / Comment(s): thyroidectomy, rt breast lumpectomy, enma cataracts removed-lens implants, lt knee replacment Past Anesthesia/Blood Transfusion Reactions: No Reported Reaction Additional Past Anesthesia/Blood Transfusion Reaction / Comment(s): never had a blood transfusions Smoking Status: Former smoker - Past Family History Mother Family Medical History: Cancer Additional Family Medical History / Comment(s): from metastatic cancer age 41 Father Family Medical History: Cancer Additional Family Medical History / Comment(s): ge 54 Medications and Allergies Home Medications Medication Instructions Recorded Confirmed Type Cholecalciferol [Vitamin D3] 1,000 unit PO DAILY 04/08/18 03/25/20 History amLODIPine [Norvasc] 5 mg PO DAILY 04/08/18 03/25/20 History Albuterol Sulfate [Ventolin HFA] 2 puff INHALATION RT-QID PRN 03/25/20 03/25/20 History Diclofenac Sodium [Voltaren Gel] 2 gram TOPICAL QID PRN 03/25/20 03/25/20 History Ibuprofen [Motrin] 600 mg PO TID PRN 03/25/20 03/25/20 History Ipratropium-Albuterol Nebulize 3 ml INHALATION RT-QID 03/25/20 03/25/20 History [Duoneb 0.5 mg-3 mg/3 ml Soln] Levothyroxine Sodium [Synthroid] 137 mcg PO DAILY 03/25/20 03/25/20 History carBAMazepine CHEW [TEGretol CHEW] 100 mg PO Q12H 03/25/20 03/25/20 History Allergies Allergy/AdvReac Type Severity Reaction Status Date / Time cat dander Allergy Dyspnea Verified 03/25/20 11:28 dog dander Allergy Dyspnea Verified 03/25/20 11:28 pollen extracts Allergy Dyspnea Verified 03/25/20 11:28 Sulfa (Sulfonamide AdvReac Abdominal Verified 03/25/20 11:22 Antibiotics) Pain Physical Exam Vitals: Vital Signs Temp Pulse Pulse Resp BP Pulse Ox 03/26/20 12:00 98.2 F 65 18 167/77 97 03/26/20 09:53 60 03/26/20 09:43 56 L 16 96 03/26/20 08:00 59 L 18 03/26/20 07:55 98.4 F 59 L 18 131/76 97 03/26/20 03:23 98.1 F 54 L 18 164/72 95 03/26/20 02:00 82 18 03/25/20 23:51 98.0 F 82 18 149/80 95 03/25/20 22:25 188/81 03/25/20 21:36 70 03/25/20 21:27 70 03/25/20 20:00 98.1 F 67 18 187/73 97 03/25/20 16:30 65 18 03/25/20 16:14 74 03/25/20 16:04 72 03/25/20 16:00 98.4 F 65 18 171/77 96 Intake and Output 03/25/20 03/26/20 03/26/20 22:59 06:59 14:59 Intake Total 56.667 400 Output Total 200 200 Balance 56.667 200 -200 Intake: Intake, IV Titration 56.667 400 Amount Heparin Sod,Pork in 0.45% 56.667 NaCl 25,000 unit In 0.45 % NaCl 1 250ml.bag @ 12 UNITS/KG/HR 8.763 mls/hr IV .Q24H [facility] Rx#: [id number] Sodium Chloride 0.9% 1, 400 000 ml @ 150 mls/hr IV . Q6H40M [facility] Rx#:[id number] Output: Urine 200 200 Other: Voiding Method Bedside Commode Bedside Commode Bedside Commode # Voids 1 1 1 # Bowel Movements 0 Weight 77.9 kg 77.9 kg Results 03/26/20 07:25 03/25/20 16:24 Cardiac Enzymes 03/25/20 03/25/20 Range/Units 12:14 16:24 Troponin I 0.134 H* 0.128 H* (0.000-0.034) ng/mL Coagulation 03/25/20 03/26/20 03/26/20 Range/Units 16:24 00:35 07:25 APTT 173.1 H* 60.0 H 57.9 H (22.0-30.0) sec CBC 03/26/20 Range/Units 07:25 WBC 6.0 (3.8-10.6) k/uL RBC 3.35 L (3.80-5.40) m/uL Hgb 10.0 L (11.4-16.0) gm/dL Hct 30.1 L (34.0-46.0) % Plt Count 137 L (150-450) k/uL Comprehensive Metabolic Panel 03/25/20 Range/Units 16:24 Sodium 138 (137-145) mmol/L Potassium 3.6 (3.5-5.1) mmol/L Chloride 106 (98-107) mmol/L Carbon Dioxide 28 (22-30) mmol/L BUN 60 H (7-17) mg/dL Creatinine 2.56 H (0.52-1.04) mg/dL Glucose 105 H (74-99) mg/dL Calcium 12.9 H (8.4-10.2) mg/dL Current Medications Generic Name Dose Route Start Last Admin Trade Name Freq PRN Reason Stop Dose Admin Acetaminophen 650 mg 03/25/20 11:15 Acetaminophen Tab 325 Mg Tab PO Q6HR PRN Mild Pain or Fever > 100.5 Albuterol Sulfate 2.5 mg 03/25/20 14:04 Albuterol Nebulized 2.5 Mg/3 Ml INHALATION RT-QID PRN Shortness Of Breath Albuterol/Ipratropium 3 ml 03/25/20 16:00 03/26/20 12:26 Ipratropium-Albuterol 3 Ml Neb INHALATION Not Given RT-QID [facility] Amlodipine Besylate 5 mg 03/25/20 14:15 03/26/20 10:03 Amlodipine 5 Mg Tab PO 5 mg DAILY [facility] Administration Carbamazepine 100 mg 03/25/20 14:15 03/25/20 22:05 Carbamazepine Chew 100 Mg Chew PO 100 mg Q12HR [facility] Administration Cholecalciferol 1,000 unit 03/26/20 09:00 03/26/20 10:03 Cholecalciferol 1,000 Unit Tab PO 1,000 unit DAILY [facility] Administration Diclofenac Sodium 2 gm 03/25/20 14:04 Diclofenac Sodium Gel 100 Gm Tube TOPICAL QID PRN Pain Heparin Sodium (Porcine) 0 unit 03/25/20 10:53 Heparin Sodium,Porcine 5,000 Unit/Ml 1 Ml Vial IV PER PROTOCOL PRN Low PTT Protocol Sodium Chloride 1,000 mls @ 150 mls/hr 03/25/20 10:45 03/26/20 06:11 Saline 0.9% IV 150 mls/hr .Q6H40M [facility] Administration Heparin Sodium/Sodium Chloride 250 mls @ 8.763 mls/hr 03/25/20 11:00 03/25/20 19:09 25,000 unit/ Sodium Chloride IV 9 units/kg/hr .Q24H [facility] 6.573 mls/hr Titration Protocol 12 UNITS/KG/HR Levothyroxine Sodium 137 mcg 03/25/20 14:15 03/26/20 06:10 Levothyroxine 137 Mcg Tab PO 137 mcg 0630 [facility] Administration Metoprolol Tartrate 25 mg 03/26/20 21:00 Metoprolol Tartrate 25 Mg Tab PO BID [facility] Naloxone HCl 0.2 mg 03/25/20 11:15 Naloxone 0.4 Mg/Ml 1 Ml Vial IV Q2M PRN Opioid Reversal Intake and Output 03/25/20 03/26/20 03/26/20 22:59 06:59 14:59 Intake Total 56.667 400 Output Total 200 200 Balance 56.667 200 -200 Intake: Intake, IV Titration 56.667 400 Amount Heparin Sod,Pork in 0.45% 56.667 NaCl 25,000 unit In 0.45 % NaCl 1 250ml.bag @ 12 UNITS/KG/HR 8.763 mls/hr IV .Q24H [facility] Rx#: [id number] Sodium Chloride 0.9% 1, 400 000 ml @ 150 mls/hr IV . Q6H40M [facility] Rx#:[id number] Output: Urine 200 200 Other: Voiding Method Bedside Commode Bedside Commode Bedside Commode # Voids 1 1 1 # Bowel Movements 0 Weight 77.9 kg 77.9 kg Patient Weight 03/27/20 06:59 Weight 77.9 kg 03/26/20 07:25 03/25/20 16:24
[2020-03-26] MEDS: HEPARIN SOD,PORK IN 0.45% NACL 25,000 UNIT in 0.45% NACL 1 250ML.BAG IV SCH ×2 (13:28→22:52)
[2020-03-26 13:43] LABS: Appearance,Urine Cloudy (Clear); Bacteria,Urine Occasional /hpf; Bilirubin,Urine Negative (Negative); Blood,Urine Trace (Negative); Color,Urine Light Yellow; Glucose,Urine (UA) Negative (Negative); Ketones,Urine Negative (Negative); Leukocyte Esterase,Urine Large (Negative); Mucus,Urine Rare /hpf; Nitrite,Urine Negative (Negative); Protein,Urine Negative (Negative); RBC,Urine 1 /hpf (0-5); Specific Gravity,Urine 1.009 (1.001-1.035); Squamous Epithelial Cell,Urine 2 /hpf (0-4); Urobilinogen,Urine <2.0 mg/dL (<2.0); WBC,Urine 45 /hpf (0-5)
--- NOTE | 2020-03-26 17:06 | CONS ---
CONSULTATION REASON FOR CONSULT: Hypercalcemia and acute kidney injury. HISTORY OF PRESENT ILLNESS: The patient is an 84-year-old female who was admitted to the hospital with complaints of mental status changes and increased weakness. She also had some shortness of breath prior to admission. The patient is not able to give a detailed history. Serum creatinine on admission was noted to be 2.79 mg/dL. Previous creatinine on 04/13/2018 was 0.65. Calcium was 14.1, with previous calcium 7.8 on 04/13/2018. Patient denied any nausea, vomiting or diarrhea, although she stated that she had been eating and drinking less than previously. Troponin was elevated at 0.147 and 0.13. Patient was started on IV fluids. Her creatinine has improved to 2.5 today and her calcium is down to 12.9. Patient admitted to occasional use of Tums. She was maintained on vitamin D at home. However, I did not see any calcium supplements on her home med list. Vitamin D level was ordered, which came back high at 113.5. PTH has also been ordered, and it is currently pending. Patient is not on any thiazide diuretics. She was taking Motrin prior to admission. PAST MEDICAL HISTORY: Hypertension, osteoarthritis, gastroesophageal reflux disease, history of pneumonia, hypothyroidism, left breast cancer with lumpectomy, radiation, cervical cancer, status post surgery with history of thyroidectomy; details not known. PAST SURGICAL HISTORY: Thyroidectomy, right breast lumpectomy, bilateral cataract surgery, left knee arthroplasty, bladder surgery, cholecystectomy, tonsillectomy, hysterectomy. SOCIAL HISTORY: Negative for smoking, drug abuse or alcohol abuse. MEDICATIONS: Medications prior to admission included vitamin D3, Norvasc, Voltaren gel, Motrin, Synthroid, Tegretol. ALLERGIES: ALLERGIES are MULTIPLE, including POLLEN, SULFA, DOG AND CAT DANDER. REVIEW OF SYSTEMS: As per HPI. Other systems negative. PHYSICAL EXAMINATION: Patient is comfortable, awake. She is confused. She is not in any acute distress. This morning blood pressure was 131/76, heart rate of 60 per minute. She is afebrile. EXAMINATION OF THE HEART: S1 and S2. EXAMINATION OF LUNGS: Bilateral breath sounds are heard. ABDOMEN: Soft, obese, non-tender. Examination of lower extremities shows no significant edema. POKE IN exam is grossly intact. Patient moving all 4 extremities, but she is confused. LABS: Labs show hemoglobin 10.0, sodium 138, potassium 3.6, chloride 106, BUN 60, creatinine 2.56. Troponin 0.128. 25-hydroxy vitamin D 113.5. UA shows trace blood, large leukocyte esterase, WBCs 45. ASSESSMENT: 1. Acute kidney injury, multifactorial, including secondary to non-steroidal anti- inflammatories, hypercalcemia and volume depletion. Currently maintained on normal saline. Renal function has improved. Continue to maintain off of NSAIDs and repeat labs in a.m. Check ultrasound of the kidneys. UA is unremarkable except for trace protein and pyuria. 2. Asymptomatic pyuria. Rule out UTI. 3. Hypercalcemia associated with toxic vitamin D levels. PTH is pending; if it is appropriately low, I expect the calcium level to continue to decline. Patient is also advised to avoid any calcium supplements or Tums post discharge. Continue to hold off on the vitamin D for now. 4. Osteoarthritis, status post knee arthroplasty. 5. Hypertension, currently controlled. 6. Elevated troponin, maintained on IV heparin, which has actually now been discontinued. 7. Hypothyroidism, maintained on Synthroid. PLAN: Continue IV fluids. Monitor creatinine, since Bactrim has been started. Await PTH. Continue to hold off on vitamin D. Repeat labs in a.m. Check ultrasound of the kidneys. Follow up on urine culture and discontinue Bactrim if no evidence of bacterial growth. Thank you for this consultation. Will continue to follow the patient with you during her hospitalization. MMODL / IJN: [id number] /
[2020-03-26] MEDS: SULFAMETHOX-TMP 800-160MG 1 EACH TAB PO SCH (20:05)
[2020-03-26] MEDS: METOPROLOL TARTRATE 25 MG TAB PO SCH (20:05)
[2020-03-27] MEDS: LEVOTHYROXINE 137 MCG TAB PO SCH (06:05)
[2020-03-27] MEDS: SODIUM CHLORIDE 0.9% 1,000 ML IV SCH ×2 (06:06→14:30)
[2020-03-27 08:01] LABS: Basophils % (A) 0 %; Eosinophils # (A) 0.2 k/uL (0-0.7); Eosinophils % (A) 3 %; Lymphocytes # (A) 1.7 k/uL (1.0-4.8); Lymphocytes % (A) 32 %; MCH 30.6 pg (25.0-35.0); MCHC 34.3 g/dL (31.0-37.0); MCV 89.3 fL (80.0-100.0); Mean Platelet Volume 8.3; Monocytes # (A) 0.3 k/uL (0-1.0); Monocytes % (A) 5 %; Neutrophils # (A) 3.1 k/uL (1.3-7.7); Neutrophils % (A) 58 %; Platelet Count 120 k/uL (150-450); RBC 3.25 m/uL (3.80-5.40); RDW 13.2 % (11.5-15.5); WBC 5.4 k/uL (3.8-10.6)
--- NOTE | 2020-03-27 08:44 | P.PN ---
Subjective Progress Note Date: 03/27/20 Principal diagnosis: UTI with acute kidney injury and elevated troponin. The patient is essentially 84-year-old white female with renal failure and element of elevated troponin. She also had altered mental status yesterday which is now improved. She seems more lucid this morning and does not complain of seeing or hearing things recently. No significant fever or chills stated. I suspect she could be having elements of UTI. Objective - Vital Signs Vital signs: Vital Signs Temp 97.9 F 03/27/20 03:35 Pulse 67 03/27/20 03:35 Resp 18 03/27/20 03:35 BP 142/84 03/27/20 03:35 Pulse Ox 96 03/27/20 03:35 Intake & Output 03/26/20 03/27/20 03/27/20 18:59 06:59 18:59 Intake Total 720.395 221.786 Output Total 200 700 Balance 520.395 -478.214 Weight 77.9 kg 78.1 kg Intake: Intake, IV Titration 120.395 221.786 Amount Heparin Sod,Pork in 0.45% 120.395 61.786 NaCl 25,000 unit In 0.45 % NaCl 1 250ml.bag @ 12 UNITS/KG/HR 8.763 mls/hr IV .Q24H [facility] Rx#: [id number] Sodium Chloride 0.9% 1, 160 000 ml @ 150 mls/hr IV . Q6H40M [facility] Rx#:[id number] Oral 600 Output: Urine 200 700 Other: Voiding Method Bedside Commode Bedside Commode # Voids 4 1 1 # Bowel Movements 0 - Constitutional General appearance: Present: average body habitus - EENT Eyes: Absent: abnormal pupil - Neck Neck: Absent: lymphadenopathy - Respiratory Respiratory: bilateral: CTA - Cardiovascular Rhythm: irregularly irregular Heart sounds: normal: S1, S2 Abnormal Heart Sounds: Absent: S3 Gallop - Gastrointestinal General gastrointestinal: Present: soft. Absent: tenderness - Psychiatric Psychiatric: Present: A&O x's 3 - Labs CBC & Chem 7: 03/27/20 07:41 03/25/20 16:24 Labs: Abnormal Lab Results - Last 24 Hours (Table) 03/26/20 03/26/20 03/26/20 Range/Units 07:25 07:25 13:20 RBC (3.80-5.40) m/uL Hgb (11.4-16.0) gm/dL Hct (34.0-46.0) % Plt Count (150-450) k/uL APTT (22.0-30.0) sec Vitamin D 25-Hydroxy 113.5 H (30.0-100.0) ng/mL PTH Intact <2.0 L (14.0-72.0) pg/mL Urine Appearance Cloudy H (Clear) Urine Blood Trace H (Negative) Ur Leukocyte Esterase Large H (Negative) Urine WBC 45 H (0-5) /hpf Urine Bacteria Occasional H (None) /hpf Urine Mucus Rare H (None) /hpf 03/27/20 03/27/20 Range/Units 07:41 07:41 RBC 3.25 L (3.80-5.40) m/uL Hgb 10.0 L (11.4-16.0) gm/dL Hct 29.0 L (34.0-46.0) % Plt Count 120 L (150-450) k/uL APTT 41.7 H (22.0-30.0) sec Vitamin D 25-Hydroxy (30.0-100.0) ng/mL PTH Intact (14.0-72.0) pg/mL Urine Appearance (Clear) Urine Blood (Negative) Ur Leukocyte Esterase (Negative) Urine WBC (0-5) /hpf Urine Bacteria (None) /hpf Urine Mucus (None) /hpf Assessment and Plan (1) Hypercalcemia Current Visit: Yes Status: Acute Code(s): E83.52 - HYPERCALCEMIA SNOMED Code(s): 30825011 (2) NSTEMI (non-ST elevated myocardial infarction) Current Visit: Yes Status: Acute Code(s): I21.4 - NON-ST ELEVATION (NSTEMI) MYOCARDIAL INFARCTION SNOMED Code(s): 83008571 (3) Asthma Current Visit: No Status: Acute Code(s): J45.909 - UNSPECIFIED ASTHMA, UNCOMPLICATED SNOMED Code(s): 155803075 Plan: Continue heparin. Appreciate cardiology input and nephrology input. Neurology is consulted but I do suspect this more related to her urinary tract issue as far as altered mental status. Continue current regimen of treatment. See orders otherwise. Check CBC and CMP in a.m..
--- NOTE | 2020-03-27 08:52 | US ---
EXAMINATION TYPE: US kidneys/renal and bladder DATE OF EXAM: 03/27/2020 COMPARISON: NONE CLINICAL HISTORY: 84-year-old female with renal failure Abnormal labs. TECHNIQUE: Multiple sonographic images of the kidneys and bladder are obtained. FINDINGS: EXAM MEASUREMENTS: Right Kidney: 9.3 x 4.5 x 4.8 cm Left Kidney: 11.1 x 5.5 cm Right Kidney: No hydronephrosis. Multiple cystic appearing lesions seen, largest in the upper pole me asures 1.9 x 2.7 x 1.5 cm. In the lower pole, the largest measures 1.4 x 1.6 x 1.8 cm. This kidney ap pears smaller in size compared to contralateral kidney. Left Kidney: Cortical thinning. Two cystic appearing lesions seen, one in the upper pole measuring 5. 9 x 5.3 x 6.4 cm and the second in the upper pole measuring 4.1 x 4.1 x 4.1 cm. Bladder: distended, anechoic Bilateral Jets not seen IMPRESSION: 1. Cortical thinning compatible with chronic medical renal disease. 2. No hydronephrosis. 3. Bilateral renal cysts measuring up to 6.4 cm.
[2020-03-27] MEDS: IPRATROPIUM-ALBUTEROL 3 ML NEB INHALATION SCH ×4 (08:56→20:42)
[2020-03-27] MEDS: CHOLECALCIFEROL 1,000 UNIT TAB PO SCH (09:50)
[2020-03-27] MEDS: amLODIPine 5 MG TAB PO SCH (09:50)
[2020-03-27] MEDS: SULFAMETHOX-TMP 800-160MG 1 EACH TAB PO SCH (09:50)
[2020-03-27 10:12] LABS: Angiotensin-1 Converting Enz. 25 U/L (8-52)
[2020-03-27 11:37] LABS: Calcium 10.9 mg/dL (8.4-10.2); Potassium 3.4 mmol/L (3.5-5.1)
--- NOTE | 2020-03-27 12:44 | P.CNNES ---
History of Present Illness Consult date: 03/26/20 Requesting physician: Brian Zuluaga Reason for Consult: Acute confusion, weakness History of Present Illness: Patient is a 84-year-old female, came to the hospital yesterday by ambulance at 9:07 AM for increased weakness. She did not know why she came to the hospital. She denied any chest pain headaches focal numbness or weakness. She did have some chest pressure 4 days ago. Patient tells me that she has been having leg weakness for the last couple weeks. Patient did not have any weakness of her legs before. Her legs are very wobbly. Patient was also having hallucinations. Since in the hospital, patient is requiring assistance for walking. She has difficulty turning around. The sitter states that it almost appears that her feet are not cooperating with her walking. Patient complains of hip pain. Wanda ent denies diplopia, dysphagia. She does not choke. Denies any problem with the vision except for wearing glasses. Patient otherwise is very active, takes care of her 2 grandchildren ages 2 and 5. This is significant change in her leg weakness in the last couple weeks. Patient is also very shaky. Patient's vital signs on arrival blood pressure 170/99, pulse rate [address] head showed no acute intracranial hemorrhage or midline shift. Mild diffuse age-related cerebral atrophy and moderate to advanced chronic small vessel ischemic change. Chest x-ray showed chronic changes without acute process. EKG shows sinus rhythm with first-degree AV block. Possible left atrial enlargement. Patient's blood test shows normal WBC hemoglobin 10.0, platelets 137, PTT is 173, electrolytes are normal, BUN 61, creatinine 2.72, calcium 13.5 with iritis calcium 7.4/5.3. Troponins are mildly elevated 0.134. Patient's calcium on presentation was 14.1. ALT is normal 26 AST 46/36. Patient admitted for acute renal failure, hypercalcemia, non-STEMI. Patient is a nonsmoker, does not drink alcohol. Patient states that she does take calcium supplementation she times a day and cinnamon. At present patient is not having any hallucinations. Review of Systems Patient denies any headache problem with the vision hoarseness sore throat dysphagia. Denies diplopia. Denies any chest pain shortness of breath wheezing and cough. Denies any numbness or tingling. Patient is complaining of bilateral hip pain. Denies any significant neck or back pain. Denies any problem with abdominal pain, nausea vomiting diarrhea. Past Medical History Past Medical History: Cancer, GERD/Reflux, Hypertension, Osteoarthritis (OA), Pneumonia, Thyroid Disorder Additional Past Medical History / Comment(s): hx lt breast cancer had lumpectomy/radiation, cervical cancer 1970-sx done, thyroidectomy" History of Any Multi-Drug Resistant Organisms: None Reported Past Surgical History: Appendectomy, Bladder Surgery, Breast Surgery, Cholecystectomy, Hysterectomy, Tonsillectomy Additional Past Surgical History / Comment(s): thyroidectomy, rt breast lumpectomy, enma cataracts removed-lens implants, lt knee replacment Past Anesthesia/Blood Transfusion Reactions: No Reported Reaction Additional Past Anesthesia/Blood Transfusion Reaction / Comment(s): never had a blood transfusions Smoking Status: Former smoker - Past Family History Mother Family Medical History: Cancer Additional Family Medical History / Comment(s): from metastatic cancer age 41 Father Family Medical History: Cancer Additional Family Medical History / Comment(s): ge 54 Medications and Allergies Home Medications Medication Instructions Recorded Confirmed Type Cholecalciferol [Vitamin D3] 1,000 unit PO DAILY 04/08/18 03/25/20 History amLODIPine [Norvasc] 5 mg PO DAILY 04/08/18 03/25/20 History Albuterol Sulfate [Ventolin HFA] 2 puff INHALATION RT-QID PRN 03/25/20 03/25/20 History Diclofenac Sodium [Voltaren Gel] 2 gram TOPICAL QID PRN 03/25/20 03/25/20 History Ibuprofen [Motrin] 600 mg PO TID PRN 03/25/20 03/25/20 History Ipratropium-Albuterol Nebulize 3 ml INHALATION RT-QID 03/25/20 03/25/20 History [Duoneb 0.5 mg-3 mg/3 ml Soln] Levothyroxine Sodium [Synthroid] 137 mcg PO DAILY 03/25/20 03/25/20 History carBAMazepine CHEW [TEGretol CHEW] 100 mg PO Q12H 03/25/20 03/25/20 History Allergies Allergy/AdvReac Type Severity Reaction Status Date / Time cat dander Allergy Dyspnea Verified 03/25/20 11:28 dog dander Allergy Dyspnea Verified 03/25/20 11:28 pollen extracts Allergy Dyspnea Verified 03/25/20 11:28 Sulfa (Sulfonamide AdvReac Abdominal Verified 03/25/20 11:22 Antibiotics) Pain Physical Examination - Vital Signs Vital Signs: Vital Signs Temp Pulse Pulse Resp BP BP Pulse Ox 03/26/20 09:53 60 03/26/20 09:43 56 L 16 96 03/26/20 08:00 59 L 18 03/26/20 07:55 98.4 F 59 L 18 131/76 97 03/26/20 03:23 98.1 F 54 L 18 164/72 95 03/26/20 02:00 82 18 03/25/20 23:51 98.0 F 82 18 149/80 95 03/25/20 22:25 188/81 03/25/20 21:36 70 03/25/20 21:27 70 03/25/20 20:00 98.1 F 67 18 187/73 97 03/25/20 16:30 65 18 03/25/20 16:14 74 03/25/20 16:04 72 03/25/20 16:00 98.4 F 65 18 171/77 96 03/25/20 12:15 65 18 03/25/20 12:05 98.4 F 55 L 18 192/91 97 03/25/20 11:52 98.8 F 62 18 113/91 96 03/25/20 11:25 62 18 113/91 96 03/25/20 11:00 60 16 205/90 98 Intake and Output 03/25/20 03/26/20 03/26/20 22:59 06:59 14:59 Intake Total 56.667 400 Output Total 200 200 Balance 56.667 200 -200 Intake: Intake, IV Titration 56.667 400 Amount Heparin Sod,Pork in 0.45% 56.667 NaCl 25,000 unit In 0.45 % NaCl 1 250ml.bag @ 12 UNITS/KG/HR 8.763 mls/hr IV .Q24H [facility] Rx#: [id number] Sodium Chloride 0.9% 1, 400 000 ml @ 150 mls/hr IV . Q6H40M [facility] Rx#:[id number] Output: Urine 200 200 Other: Voiding Method Bedside Commode Bedside Commode Bedside Commode # Voids 1 1 1 Weight 77.9 kg On examination patient is an elderly female, in no acute distress. Patient is alert and awake, fully oriented. She knows it is March 2020 and that she is in [facility] in [place]. Patient knows name of the current president. Patient's speech and language functions are normal. Attention and concentration, fund of knowledge appears adequate. Cranial nerve examination reveals pupils are round and reactive to light, visual xavier are full, extraocular muscles are intact. Face is symmetric, tongue protrudes the midline. Palatal elevation and sensation normal. Hearing and shoulder shrug normal. On muscle strength testing there is no pronator drift and the strength is normal in the arms and legs distally and proximally. In the lower limbs hip flexion is very weak about 2-3. However hip adduction, abduction knee extension ankles and toes are normal. Reflexes are trace to 1 in the upper limbs, 2 at the knees 0 ankles and plantars downgoing. Sensory touch is equal. No ataxia for vtvwdu-nn-rolt testing, tone and bulk of muscles normal. Patient has no tone of her trunk, and while sitting, she starts falling back. Results - Laboratory Findings CBC and BMP: 03/27/20 07:41 03/27/20 07:41 Abnormal Lab Findings: Abnormal Labs 03/25/20 03/25/20 03/25/20 09:22 09:22 09:22 RBC Hgb Hct Plt Count 138 L APTT 20.3 L BUN 64 H Creatinine 2.79 H Glucose 100 H Calcium 14.1 H* Ionized Calcium Destiny AST 46 H Troponin I 03/25/20 03/25/20 03/25/20 09:22 10:45 12:14 RBC Hgb Hct Plt Count APTT BUN 61 H Creatinine 2.72 H Glucose Calcium 13.5 H* Ionized Calcium Destiny 7.4 H* AST Troponin I 0.147 H* 0.134 H* 03/25/20 03/25/20 03/25/20 16:24 16:24 16:24 RBC Hgb Hct Plt Count APTT 173.1 H* BUN 60 H Creatinine 2.56 H Glucose 105 H Calcium 12.9 H Ionized Calcium Destiny AST Troponin I 0.128 H* 03/26/20 03/26/20 03/26/20 00:35 07:25 07:25 RBC 3.35 L Hgb 10.0 L Hct 30.1 L Plt Count 137 L APTT 60.0 H 57.9 H BUN Creatinine Glucose Calcium Ionized Calcium Destiny AST Troponin I Assessment and Plan Assessment: * 84-year-old female admitted with bilateral leg weakness for last 6 days. Examination revealed significant pain in the hips bilaterally. Need to rule out hip pathology. * Hypercalcemia * Acute renal failure, improving * Anemia * Elevated vitamin D level, low PTH. Plan: * X-ray of the hips. May need MRI of the hips rule out hip pathology if hip pain persist. * We will check serum protein electrophoresis, immunofixation electrophoresis. Rule out occult cancer. * Nephrology on the case. * Medical management as per IM.
--- NOTE | 2020-03-27 13:39 | XR ---
EXAMINATION TYPE: AP view pelvis and 2 views both hips DATE OF EXAM: 03/27/2020 COMPARISON: NONE HISTORY: 84-year-old female leg weakness and hip pain FINDINGS: There is mild degenerative change of both hips with marginal spurring. Limited visualization of the l ower femoral neck regions due to external rotation during patient positioning. No displaced fracture seen. SI joints appear symmetric and intact. Mild degenerative spurring of the right SI joint. Pelvic phleboliths. IMPRESSION: 1. Limited assessment of the lower femoral neck regions due to external rotation of the hips during p atient positioning. No displaced fracture seen. 2. Mild bilateral hip OA. 3. Mild degenerative change at the right SI joint.
[2020-03-27 14:13] LABS: Vitamin D, 1, 25-Dihydroxy 44 pg/mL (20 - 79)
--- NOTE | 2020-03-27 14:28 | PN ---
PROGRESS NOTE Patient is seen for followup for acute kidney injury and hypercalcemia. Her serum calcium has improved today to 10.9. She is maintained on normal saline. Her creatinine however although better is not significantly improved. It is down to 2.49 from 2.79. However, prior creatinine was 0.65 on 04/13/2018. This morning patient denies any significant complaints. She is resting comfortably. PHYSICAL EXAMINATION: Blood pressure was 135/67, heart rate 58 per minute. She is afebrile. EXAMINATION OF THE HEART: S1, S2. EXAMINATION OF THE LUNGS: Bilateral breath sounds are heard. ABDOMEN: Soft, nontender, obese. Examination of lower extremities shows no significant edema. ENGINEERING INSPECTION ASSISTANT exam grossly intact. LABS: Labs show sodium 140, potassium 3.4, chloride 111, BUN 46, creatinine 2.49, calcium 10.9, hemoglobin 10.0 g/dL. ASSESSMENT: 1. Acute kidney injury associated with hypercalcemia and use of NSAIDs prior to admission, currently somewhat improved although creatinine remains elevated. There is no evidence of obstruction on the ultrasound. UA is fairly benign, trace blood was noted. However, there is no proteinuria, WBCs were 45. Continue with the IV fluids for now. Continue to encourage increased oral intake. 2. Patient is also maintained on Bactrim. I would recommend discontinuation of Bactrim for now and we can switch to Cipro if the patient needs the antibiotics. However, I do not see a urine culture. 3. Hypercalcemia associated with vitamin D toxicity and appropriately low PTH levels, currently improved significantly. Continue to hold off on vitamin D and calcium supplements. 4. Pyuria, possible urinary tract infection. However, there is no urine culture. I will send out urine culture and I will switch to oral Cipro and discontinue the Bactrim for now. PLAN: Discontinue Bactrim. Check urine culture. Add Cipro if there is evidence of UTI. Decrease IV fluids. MMODL / IJN: [id number] /
--- NOTE | 2020-03-27 14:39 | P.PN ---
Subjective Progress Note Date: 03/27/20 CHIEF COMPLAINT: Abnormal troponins HISTORY OF PRESENT ILLNESS: 03/26/2020 This is a 84-year-old female with a past medical history significant for GERD, hypertension, hypothyroidism, and breast cancer. Patient does not follow with a marketing services coordinator. We have been asked to see the patient in consultation for abnormal troponins. Patient was apparently brought to the hospital secondary to weakness and altered mental status. Patient was found to be in acute renal failure with a creatinine of 2.79. Patient denies NSAID use or any new medications. Patient was found to have abnormal troponins in the emergency room and was started on IV heparin. Patient was started on metoprolol 50 mg twice a day by internal medicine. She is sinus bradycardic with a heart rate in the 50s. Patient denies any chest pain or pressure. She reports mild shortness of breath which she states she has had for years. Denies dizziness or lightheadedness. Denies nausea or vomiting. EKG reveals sinus mechanism with first-degree AV block. T-wave inversions in leads III, V2 and V3. Patient had T-wave inversions in leads 3 and V2 in 2019. Chest xray chronic changes without acute process Laboratory data: WBC 6.0. Hemoglobin 10.0. Platelet count 137. Sodium 138. Potassium 3.6. BUN 60. Creatinine 2.56. Calcium 13.5. Troponin 0.147. 0.134. 0.128. Current home cardiac medications include amlodipine 5 mg daily 03/27/2020 Patient examined this morning at the bedside. She denies chest pain or pressure. Denies shortness of breath. Denies dizziness or lightheadedness. Patient's beta thanh was decreased yesterday secondary to bradycardia. Per nursing, patient has had multiple pauses of less than 2 seconds. PHYSICAL EXAM: VITAL SIGNS: Reviewed. GENERAL: Well-developed in no acute distress. HEENT: Head is normocephalic. Pupils are equal, round. Sclerae anicteric. Mucous membranes of the mouth are moist. Neck supple. No JVD or thyromegaly LUNGS: Respirations even and unlabored. Lungs essentially clear to auscultation bilaterally. HEART: Regular rate and rhythm. S1 and S2 heard. EXTREMITIES: Normal range of motion. No clubbing or cyanosis. Peripheral pulses intact. No lower extremity edema ASSESSMENT: Generalized weakness Acute renal failure Abnormal troponins, suspect secondary to acute renal failure, patient without chest pain or acute EKG changes Hypertension Osteoarthritis Sinus bradycardia with pauses PLAN: Decrease metoprolol to 12.5 mg twice a day. Continue telemetry monitoring Preliminary echo reveals preserved LV function per c t tech Discontinue IV heparin Further recommendations pending patient's course Nurse practitioner note has been reviewed by physician. Signing provider agrees with the documented findings, assessment, and plan of care. Objective - Vital Signs Vital signs: Vital Signs Temp 97.8 F 03/27/20 08:30 Pulse 58 L 03/27/20 11:10 Resp 16 03/27/20 11:10 BP 135/67 03/27/20 11:10 Pulse Ox 98 03/27/20 11:10 Intake & Output 03/26/20 03/27/20 03/27/20 18:59 06:59 18:59 Intake Total 720.395 221.786 548.701 Output Total 200 700 Balance 520.395 -478.214 548.701 Weight 77.9 kg 78.1 kg Intake: Intake, IV Titration 120.395 221.786 72.701 Amount Heparin Sod,Pork in 0.45% 120.395 61.786 72.701 NaCl 25,000 unit In 0.45 % NaCl 1 250ml.bag @ 12 UNITS/KG/HR 8.763 mls/hr IV .Q24H [facility] Rx#: [id number] Sodium Chloride 0.9% 1, 160 000 ml @ 150 mls/hr IV . Q6H40M [facility] Rx#:[id number] Oral 600 476 Output: Urine 200 700 Other: Voiding Method Bedside Commode Bedside Commode Bedside Commode # Voids 4 1 1 # Bowel Movements 0 - Labs CBC & Chem 7: 03/27/20 07:41 03/27/20 07:41 Labs: Abnormal Lab Results - Last 24 Hours (Table) 03/26/20 03/26/20 03/27/20 Range/Units 07:25 07:25 07:41 RBC 3.25 L (3.80-5.40) m/uL Hgb 10.0 L (11.4-16.0) gm/dL Hct 29.0 L (34.0-46.0) % Plt Count 120 L (150-450) k/uL APTT (22.0-30.0) sec Potassium (3.5-5.1) mmol/L Chloride (98-107) mmol/L BUN (7-17) mg/dL Creatinine (0.52-1.04) mg/dL Calcium (8.4-10.2) mg/dL Vitamin D 25-Hydroxy 113.5 H (30.0-100.0) ng/mL PTH Intact <2.0 L (14.0-72.0) pg/mL 03/27/20 03/27/20 Range/Units 07:41 07:41 RBC (3.80-5.40) m/uL Hgb (11.4-16.0) gm/dL Hct (34.0-46.0) % Plt Count (150-450) k/uL APTT 41.7 H (22.0-30.0) sec Potassium 3.4 L (3.5-5.1) mmol/L Chloride 111 H (98-107) mmol/L BUN 46 H (7-17) mg/dL Creatinine 2.49 H (0.52-1.04) mg/dL Calcium 10.9 H (8.4-10.2) mg/dL Vitamin D 25-Hydroxy (30.0-100.0) ng/mL PTH Intact (14.0-72.0) pg/mL
--- NOTE | 2020-03-27 17:00 | ECHOF ---
Referral Reason:LV function MEASUREMENTS -------- HEIGHT: 154.9 cm WEIGHT: 78.0 kg BP: RVIDd: 3.6 cm (< 3.3) IVSd: 1.1 cm (0.6 - 1.1) LVIDd: 3.9 cm (3.9 - 5.3) LVPWd: 1.2 cm (0.6 - 1.1) IVSs: 1.5 cm LVIDs: 2.1 cm LVPWs: 1.5 cm LAESV Index (A-L): 42.87 ml/m Ao Diam: 3.0 cm (2.0 - 3.7) AV Cusp: 1.9 cm (1.5 - 2.6) MV EXCURSION: 11.351 mm (> 18.000) MV EF SLOPE: 47 mm/s (70 - 150) EPSS: 0.4 cm MV E Fredy: 1.10 m/s MV DecT: 276 ms MV A Fredy: 1.30 m/s MV E/A Ratio: 0.85 RAP: 20.00 mmHg RVSP: 49.51 mmHg FINDINGS -------- Sinus rhythm. This was a technically adequate study. The left ventricular size is normal. There is mild concentric left ventricular hypertrophy. Overa ll left ventricular systolic function is low-normal with, an EF between 50 - 55 %. Increased Lap Gr shawn II Diastolic Dysfunction. The right ventricle is mildly enlarged. LA is severely dilated >40 ml/m2 The right atrium is mildly enlarged. Interatrial and interventricular septum intact. The aortic valve is trileaflet and appears structurally normal. There is no evidence of aortic regu rgitation. There is no evidence of aortic stenosis. Mild mitral annular calcification present. Niox-hh-rbyevoyp mitral regurgitation is present. Moderate tricuspid regurgitation present. There is moderate pulmonary hypertension. The right zeferino tricular systolic pressure, as measured by Doppler, is 49.51mmHg. There is no pulmonic regurgitation present. The aortic root size is normal. The inferior vena cava is dilated with poor inspiratory collapse which is consistent with estimated r ight atrial pressure of 20 mmHg. There is no pericardial effusion. CONCLUSIONS -------- 1. The left ventricular size is normal. 2. There is mild concentric left ventricular hypertrophy. 3. Overall left ventricular systolic function is low-normal with, an EF between 50 - 55 %. 4. Increased Lap Grade II Diastolic Dysfunction. 5. The right ventricle is mildly enlarged. 6. LA is severely dilated >40 ml/m2 7. The right atrium is mildly enlarged. 8. Mild mitral annular calcification present. 9. Uafo-dh-zacwklvf mitral regurgitation is present. 10. Moderate tricuspid regurgitation present. 11. There is moderate pulmonary hypertension. 12. The right ventricular systolic pressure, as measured by Doppler, is 49.51mmHg. 13. The inferior vena cava is dilated with poor inspiratory collapse which is consistent with estimat ed right atrial pressure of 20 mmHg. DIRECTOR EMPLOYEE SAFETY AND HEALTH: Atiya Sahni RDCS
[2020-03-27 17:10] LABS: Appearance,Urine Clear (Clear); Bacteria,Urine Rare /hpf; Bilirubin,Urine Negative (Negative); Blood,Urine Negative (Negative); Color,Urine Light Yellow; Glucose,Urine (UA) Negative (Negative); Ketones,Urine Negative (Negative); Leukocyte Esterase,Urine Moderate (Negative); Mucus,Urine Rare /hpf; Nitrite,Urine Negative (Negative); PH, Urine 6.5 (5.0-8.0); Protein,Urine Negative (Negative); RBC,Urine 2 /hpf (0-5); Specific Gravity,Urine 1.011 (1.001-1.035); Squamous Epithelial Cell,Urine 1 /hpf (0-4); Urobilinogen,Urine <2.0 mg/dL (<2.0); WBC,Urine 41 /hpf (0-5)
--- NOTE | 2020-03-27 17:30 | P.PN ---
Subjective Progress Note Date: 03/27/20 Patient was seen for a follow-up. Patient is doing much better. Patient is alert and awake fully oriented. Patient's gait has much improved. The sitter was also present, who felt patient is walking well. Patient denies any pain anywhere. No numbness or tingling. Objective - Vital Signs Vital signs: Vital Signs Temp 98.1 F 03/27/20 16:10 Pulse 70 03/27/20 17:05 Resp 16 03/27/20 17:05 BP 128/77 03/27/20 16:10 Pulse Ox 97 03/27/20 16:10 Intake & Output 03/26/20 03/27/20 03/27/20 18:59 06:59 18:59 Intake Total 720.395 644.242 3751.701 Output Total 200 700 Balance 520.395 -610.071 4273.701 Weight 77.9 kg 78.1 kg Intake: Intake, IV Titration 120.395 221.786 472.701 Amount Heparin Sod,Pork in 0.45% 120.395 61.786 72.701 NaCl 25,000 unit In 0.45 % NaCl 1 250ml.bag @ 12 UNITS/KG/HR 8.763 mls/hr IV .Q24H [facility] Rx#: [id number] Sodium Chloride 0.9% 1, 160 400 000 ml @ 50 mls/hr IV . Q20H [facility] Rx#:[id number] Oral 600 726 Output: Urine 200 700 Other: Voiding Method Bedside Commode Bedside Commode Bedside Commode # Voids 4 1 1 # Bowel Movements 0 - Exam Patient's mental status, speech and leg which functions are normal. Cranial nerves are normal muscle strength is completely normal in the arms and legs. Hip flexion is almost back to normal. Hip adduction, hip abduction, knee extension and ankles are normal. Sensations are equal with no neglect. No ataxia for qjwcyx-gg-wcju or yivz-dp-qttx testing. Tone and bulk of muscles normal. No tremors. - Labs CBC & Chem 7: 03/27/20 07:41 03/27/20 07:41 Labs: Abnormal Lab Results - Last 24 Hours (Table) 03/26/20 03/27/20 03/27/20 Range/Units 07:25 07:41 07:41 RBC 3.25 L (3.80-5.40) m/uL Hgb 10.0 L (11.4-16.0) gm/dL Hct 29.0 L (34.0-46.0) % Plt Count 120 L (150-450) k/uL APTT 41.7 H (22.0-30.0) sec Potassium (3.5-5.1) mmol/L Chloride (98-107) mmol/L BUN (7-17) mg/dL Creatinine (0.52-1.04) mg/dL Calcium (8.4-10.2) mg/dL PTH Intact <2.0 L (14.0-72.0) pg/mL Ur Leukocyte Esterase (Negative) Urine WBC (0-5) /hpf Urine Bacteria (None) /hpf Urine Mucus (None) /hpf 03/27/20 03/27/20 Range/Units 07:41 09:55 RBC (3.80-5.40) m/uL Hgb (11.4-16.0) gm/dL Hct (34.0-46.0) % Plt Count (150-450) k/uL APTT (22.0-30.0) sec Potassium 3.4 L (3.5-5.1) mmol/L Chloride 111 H (98-107) mmol/L BUN 46 H (7-17) mg/dL Creatinine 2.49 H (0.52-1.04) mg/dL Calcium 10.9 H (8.4-10.2) mg/dL PTH Intact (14.0-72.0) pg/mL Ur Leukocyte Esterase Moderate H (Negative) Urine WBC 41 H (0-5) /hpf Urine Bacteria Rare H (None) /hpf Urine Mucus Rare H (None) /hpf Assessment and Plan Assessment: * Altered mental status, likely due to metabolic encephalopathy due to hypercalcemia and other metabolic dysfunction as mentioned below. * Bilateral leg weakness for last 6 days. Patient's muscle strength is much improved in the legs. Suspect muscle weakness from hypercalcemia, and other m etabolic dysfunction. * Hypercalcemia * Acute renal failure, improving * Anemia * Elevated vitamin D level, low PTH. Plan: * X-ray of the hips and pelvis revealed limited assessment of the lower femoral neck region due to external rotation of the hips during patient positioning. No displaced fracture. Mild bilateral hip osteoarthritis. Mild degenerative change at the right SI joint. * We will check serum protein electrophoresis, immunofixation electrophoresis, B12, folate, TSH. * Patient's muscle strength and gait has much improved. Suspect muscle weakness likely related to severe hypercalcemia and other metabolic dysfunction. * Nephrology on the case. * Stop calcium and vitamin D supplementation.
[2020-03-27] MEDS: METOPROLOL TARTRATE 25 MG TAB PO SCH (19:35)
[2020-03-27] MEDS: METOPROLOL TARTRATE 12.5 MG TAB PO SCH (20:44)
--- NOTE | 2020-03-27 22:22 | P.PN ---
Subjective Principal diagnosis: UTI with acute kidney injury and elevated troponin. The patient is essentially 84-year-old white female with renal failure and element of elevated troponin. She also had altered mental status yesterday which is now improved. She seems more lucid this morning and does not complain of seeing or hearing things recently. No significant fever or chills stated. I suspect she could be having elements of UTI. Appeciate multiple consultants input Objective - Vital Signs Vital signs: Vital Signs Temp 98.2 F 03/27/20 20:00 Pulse 74 03/27/20 20:00 Resp 18 03/27/20 20:00 BP 152/67 03/27/20 20:00 Pulse Ox 98 03/27/20 20:00 Intake & Output 03/27/20 03/27/20 03/28/20 06:59 18:59 06:59 Intake Total 106.332 4092.701 Output Total 700 800 200 Balance -478.214 634.701 -200 Weight 78.1 kg Intake: Intake, IV Titration 221.786 472.701 Amount Heparin Sod,Pork in 0.45% 61.786 72.701 NaCl 25,000 unit In 0.45 % NaCl 1 250ml.bag @ 12 UNITS/KG/HR 8.763 mls/hr IV .Q24H [facility] Rx#: [id number] Sodium Chloride 0.9% 1, 160 400 000 ml @ 50 mls/hr IV . Q20H [facility] Rx#:[id number] Oral 962 Output: Urine 700 800 200 Other: Voiding Method Bedside Commode Bedside Commode Bedside Commode # Voids 1 1 - Constitutional General appearance: Present: average body habitus - EENT Eyes: Absent: abnormal pupil Ears: right: bullous - Neck Neck: Absent: lymphadenopathy - Respiratory Respiratory: bilateral: diminished - Cardiovascular Rhythm: regular Heart sounds: normal: S1, S2 Abnormal Heart Sounds: Absent: S3 Gallop - Gastrointestinal General gastrointestinal: Present: soft. Absent: tenderness - Psychiatric Psychiatric: Present: appropriate affect - Labs CBC & Chem 7: 03/27/20 07:41 03/27/20 07:41 Labs: Abnormal Lab Results - Last 24 Hours (Table) 03/27/20 03/27/20 03/27/20 Range/Units 07:41 07:41 07:41 RBC 3.25 L (3.80-5.40) m/uL Hgb 10.0 L (11.4-16.0) gm/dL Hct 29.0 L (34.0-46.0) % Plt Count 120 L (150-450) k/uL APTT 41.7 H (22.0-30.0) sec Potassium 3.4 L (3.5-5.1) mmol/L Chloride 111 H (98-107) mmol/L BUN 46 H (7-17) mg/dL Creatinine 2.49 H (0.52-1.04) mg/dL Calcium 10.9 H (8.4-10.2) mg/dL Ur Leukocyte Esterase (Negative) Urine WBC (0-5) /hpf Urine Bacteria (None) /hpf Urine Mucus (None) /hpf 03/27/20 Range/Units 09:55 RBC (3.80-5.40) m/uL Hgb (11.4-16.0) gm/dL Hct (34.0-46.0) % Plt Count (150-450) k/uL APTT (22.0-30.0) sec Potassium (3.5-5.1) mmol/L Chloride (98-107) mmol/L BUN (7-17) mg/dL Creatinine (0.52-1.04) mg/dL Calcium (8.4-10.2) mg/dL Ur Leukocyte Esterase Moderate H (Negative) Urine WBC 41 H (0-5) /hpf Urine Bacteria Rare H (None) /hpf Urine Mucus Rare H (None) /hpf Assessment and Plan (1) Hypercalcemia Current Visit: Yes Status: Acute Code(s): E83.52 - HYPERCALCEMIA SNOMED Code(s): 85902308 (2) NSTEMI (non-ST elevated myocardial infarction) Current Visit: Yes Status: Acute Code(s): I21.4 - NON-ST ELEVATION (NSTEMI) MYOCARDIAL INFARCTION SNOMED Code(s): 31331704 (3) Asthma Current Visit: No Status: Acute Code(s): J45.909 - UNSPECIFIED ASTHMA, UNCOMPLICATED SNOMED Code(s): 551327002 (4) UTI (urinary tract infection) Current Visit: Yes Status: Acute Code(s): N39.0 - URINARY TRACT INFECTION, SITE NOT SPECIFIED SNOMED Code(s): 15389355 Plan: Continue heparin. Appreciate cardiology input and nephrology input. Neurology is consulted but I do suspect this more related to her urinary tract issue as far as altered mental status. Continue current regimen of treatment. See orders otherwise. Check CBC and CMP in a.m..
[2020-03-28] MEDS: LEVOTHYROXINE 137 MCG TAB PO SCH (06:31)
[2020-03-28 08:02] LABS: Basophils % (A) 0 %; Eosinophils # (A) 0.2 k/uL (0-0.7); Eosinophils % (A) 3 %; HCT 28.1 % (34.0-46.0); HGB 9.1 gm/dL (11.4-16.0); Lymphocytes # (A) 1.3 k/uL (1.0-4.8); Lymphocytes % (A) 23 %; MCH 29.6 pg (25.0-35.0); MCHC 32.6 g/dL (31.0-37.0); MCV 90.9 fL (80.0-100.0); Mean Platelet Volume 8.2; Monocytes # (A) 0.3 k/uL (0-1.0); Monocytes % (A) 5 %; Neutrophils # (A) 3.7 k/uL (1.3-7.7); Neutrophils % (A) 66 %; Platelet Count 122 k/uL (150-450); RBC 3.09 m/uL (3.80-5.40); RDW 13.7 % (11.5-15.5); WBC 5.6 k/uL (3.8-10.6)
--- NOTE | 2020-03-28 08:12 | P.PN ---
Subjective Principal diagnosis: UTI with acute kidney injury and elevated troponin. The patient is essentially 84-year-old white female with renal failure and element of elevated troponin. She also had altered mental status yesterday which is now improved. She seems more lucid this morning and does not complain of seeing or hearing things recently. No significant fever or chills stated. I suspect she could be having elements of UTI. Appeciate multiple consultants input The patient is significantly improved. We will check a CMP today for current renal status. Objective - Vital Signs Vital signs: Vital Signs Temp 98.1 F 03/28/20 03:07 Pulse 67 03/28/20 03:07 Resp 18 03/28/20 03:07 BP 152/68 03/28/20 03:07 Pulse Ox 98 03/28/20 03:07 Intake & Output 03/27/20 03/28/20 03/28/20 18:59 06:59 18:59 Intake Total 1434.701 410 Output Total 800 800 Balance 634.701 -390 Weight 77.6 kg Intake: IV 410 0.9 410 Intake, IV Titration 472.701 Amount Heparin Sod,Pork in 0.45% 72.701 NaCl 25,000 unit In 0.45 % NaCl 1 250ml.bag @ 12 UNITS/KG/HR 8.763 mls/hr IV .Q24H [facility] Rx#: [id number] Sodium Chloride 0.9% 1, 400 000 ml @ 50 mls/hr IV . Q20H [facility] Rx#:[id number] Oral 962 Output: Urine 800 800 Other: Voiding Method Bedside Commode Bedside Commode # Voids 1 1 1 # Bowel Movements 0 - Constitutional General appearance: Present: average body habitus - EENT Eyes: Absent: abnormal pupil - Respiratory Respiratory: bilateral: CTA - Cardiovascular Rhythm: regular Heart sounds: normal: S1, S2 Abnormal Heart Sounds: Absent: S3 Gallop - Gastrointestinal General gastrointestinal: Present: soft. Absent: tenderness - Integumentary Integumentary: Absent: cellulitis - Labs CBC & Chem 7: 03/28/20 07:20 03/27/20 07:41 Labs: Abnormal Lab Results - Last 24 Hours (Table) 03/27/20 03/27/20 03/28/20 Range/Units 07:41 09:55 07:20 RBC 3.09 L (3.80-5.40) m/uL Hgb 9.1 L (11.4-16.0) gm/dL Hct 28.1 L (34.0-46.0) % Plt Count 122 L (150-450) k/uL Potassium 3.4 L (3.5-5.1) mmol/L Chloride 111 H (98-107) mmol/L BUN 46 H (7-17) mg/dL Creatinine 2.49 H (0.52-1.04) mg/dL Calcium 10.9 H (8.4-10.2) mg/dL Ur Leukocyte Esterase Moderate H (Negative) Urine WBC 41 H (0-5) /hpf Urine Bacteria Rare H (None) /hpf Urine Mucus Rare H (None) /hpf Assessment and Plan (1) Hypercalcemia Current Visit: Yes Status: Acute Code(s): E83.52 - HYPERCALCEMIA SNOMED Code(s): 44980764 (2) NSTEMI (non-ST elevated myocardial infarction) Current Visit: Yes Status: Acute Code(s): I21.4 - NON-ST ELEVATION (NSTEMI) MYOCARDIAL INFARCTION SNOMED Code(s): 47300313 (3) Asthma Current Visit: No Status: Acute Code(s): J45.909 - UNSPECIFIED ASTHMA, UNCOMPLICATED SNOMED Code(s): 371158837 (4) UTI (urinary tract infection) Current Visit: Yes Status: Acute Code(s): N39.0 - URINARY TRACT INFECTION, SITE NOT SPECIFIED SNOMED Code(s): 56413333 Plan: Appreciate cardiology input and nephrology input. Neurology is consulted but I do suspect this more related to her urinary tract issue as far as altered mental status. Continue current regimen of treatment. See orders otherwise. Check CBC and CMP in a.m..
[2020-03-28 08:13] LABS: Calcium 10.1 mg/dL (8.4-10.2); Potassium 3.8 mmol/L (3.5-5.1); Total Bilirubin 0.5 mg/dL (0.2-1.3); Total Protein 5.7 g/dL (6.3-8.2)
[2020-03-28] MEDS: IPRATROPIUM-ALBUTEROL 3 ML NEB INHALATION SCH ×4 (09:05→20:58)
[2020-03-28] MEDS: METOPROLOL TARTRATE 12.5 MG TAB PO SCH ×2 (09:06→20:07)
[2020-03-28] MEDS: amLODIPine 5 MG TAB PO SCH (09:07)
[2020-03-28] MEDS: SODIUM CHLORIDE 0.9% 1,000 ML IV SCH (09:08)
[2020-03-28 09:48] LABS: T4, Free (Free Thyroxine) 2.72 ng/dL (0.78-2.19)
[2020-03-28 10:54] LABS: Protein, Total 5.3 g/dL (6.2-8.2)
--- NOTE | 2020-03-28 15:38 | PN ---
PROGRESS NOTE Patient is seen for followup for acute kidney injury and hypercalcemia. Serum calcium has improved significantly to about 10.1 today. Her renal function has improved as well. Creatinine down to 2.3 from 2.7 on initial admission, but remains above 2. Previous creatinine on 04/13/2018 was 0.65. On examination today, patient denies any significant complaints. Blood pressure was 149/66, heart rate 64 per minute. She is afebrile. EXAMINATION OF THE HEART: S1 and S2. EXAMINATION OF LUNGS: Decreased breath sounds at bases. ABDOMEN: Soft, non-tender and obese. Examination of lower extremities shows no significant edema. [employer] exam is grossly intact. Patient is moving all 4 extremities. She was confused. Her mentation appears to have improved. Labs show sodium 140, potassium 3.8, chloride 112, BUN 40, creatinine 2.34, hemoglobin 9.1 g/dL. ASSESSMENT: 1. Acute kidney injury associated with hypercalcemia, possibly acute tubular necrosis as well, slowly improving. However, creatinine remains above 2. The patient has good urine output. UA is fairly benign except for pyuria. Patient was on Bactrim, which was discontinued yesterday. Urine culture is currently pending. 2. Hypercalcemia associated with vitamin D toxicity and use of calcium over the counter, currently improved. PTH levels are appropriately low. 3. Hypertension. Blood pressure was elevated, currently slightly improved. Continue with the Norvasc at the current dose. Expect further improvement once IV fluids are discontinued. 4. Bilateral renal cysts noted on ultrasound. They do not appear to be complex. PLAN: Continue to encourage increased oral intake. The patient will need followup as outpatient post discharge. Continue to hold off on all calcium supplements and vitamin D. MMODL / IJN: [id number] /
--- NOTE | 2020-03-28 16:03 | P.PN ---
Subjective HISTORY OF PRESENT ILLNESS: This is a 84-year-old female with a past medical history significant for GERD, hypertension, hypothyroidism, and breast cancer. Patient does not follow with a plaque maker. We have been asked to see the patient in consultation for abnormal troponins. Patient was apparently brought to the hospital secondary to weakness and altered mental status. Patient was found to be in acute renal failure with a creatinine of 2.79. Patient denies NSAID use or any new medications. Patient was found to have abnormal troponins in the emergency room and was started on IV heparin. Patient was started on metoprolol 50 mg twice a day by internal medicine. She is sinus bradycardic with a heart rate in the 50s. Patient denies any chest pain or pressure. She reports mild shortness of breath which she states she has had for years. Denies dizziness or lightheadedness. Denies nausea or vomiting. EKG reveals sinus mechanism with first-degree AV block. T-wave inversions in leads III, V2 and V3. Patient had T-wave inversions in leads 3 and V2 in 2019. Chest xray chronic changes without acute process Laboratory data: WBC 6.0. Hemoglobin 10.0. Platelet count 137. Sodium 138. Potassium 3.6. BUN 60. Creatinine 2.56. Calcium 13.5. Troponin 0.147. 0.134. 0.128. Current home cardiac medications include amlodipine 5 mg daily 03/28/2020 Patient examined this morning at the bedside. Patient denies any chest pain, pressure, shortness breath. She states she is feeling much better. TSH was checked this morning which was 0.133 and free T4 mildly elevated at 2.72. Calcium continues improved currently 10.1 today. Creatinine still at 2.34 however mildly improved. Hemoglobin 9.1 today. Echocardiogram performed yesterday shows ejection fraction 50-55% with [id number] mitral regurgitation, increased RVSP at 49. PHYSICAL EXAM: VITAL SIGNS: Reviewed. GENERAL: Well-developed in no acute distress. HEENT: Head is normocephalic. Pupils are equal, round. Sclerae anicteric. Mucous membranes of the mouth are moist. Neck supple. No JVD or thyromegaly LUNGS: Respirations even and unlabored. Lungs essentially clear to auscultation bilaterally. HEART: Regular rate and rhythm. S1 and S2 heard. EXTREMITIES: Normal range of motion. No clubbing or cyanosis. Peripheral pulses intact. No lower extremity edema ASSESSMENT: Generalized weakness Acute renal failure Abnormal troponins, suspect secondary to acute renal failure, patient without chest pain or acute EKG changes. Echo shows predominantly preserved ejection fraction 50-55%. Hypertension Osteoarthritis Sinus bradycardia with pauses, asymptomatic. Continue to monitor Altered mental status Hypercalcemia PLAN: Patient with asymptomatic sinus bradycardia. Continue with current dose of metoprolol. Suspect abnormal troponins related to acute kidney failure, generalized weakness. No further recommendations from a cardiac standpoint. Further workup of hypercalcemia, acute kidney injury per primary team. Please call with any questions Objective - Vital Signs Vital signs: Vital Signs Temp 98.6 F 03/28/20 11:15 Pulse 66 03/28/20 13:10 Resp 18 03/28/20 11:15 BP 149/66 03/28/20 11:15 Pulse Ox 98 03/28/20 11:15 Intake & Output 03/27/20 03/28/20 03/28/20 18:59 06:59 18:59 Intake Total 1434.890 999 8771 Output Total 800 800 500 Balance 634.701 -390 580 Weight 77.6 kg Intake: IV 410 720 0.9 410 300 Invasive Line 2 20 Sodium Chloride 0.9% 1, 400 000 ml @ 50 mls/hr IV . Q20H [facility] Rx#:[id number] Intake, IV Titration 472.701 Amount Heparin Sod,Pork in 0.45% 72.701 NaCl 25,000 unit In 0.45 % NaCl 1 250ml.bag @ 12 UNITS/KG/HR 8.763 mls/hr IV .Q24H [facility] Rx#: [id number] Sodium Chloride 0.9% 1, 400 000 ml @ 50 mls/hr IV . Q20H [facility] Rx#:[id number] Oral 962 360 Output: Urine 800 800 500 Other: Voiding Method Bedside Commode Bedside Commode Toilet Diaper # Voids 1 1 1 # Bowel Movements 0 - Labs CBC & Chem 7: 03/28/20 07:20 03/28/20 07:20 Labs: Abnormal Lab Results - Last 24 Hours (Table) 03/27/20 03/28/20 03/28/20 Range/Units 09:55 07:20 07:20 RBC (3.80-5.40) m/uL Hgb (11.4-16.0) gm/dL Hct (34.0-46.0) % Plt Count (150-450) k/uL Chloride 112 H (98-107) mmol/L BUN 40 H (7-17) mg/dL Creatinine 2.34 H (0.52-1.04) mg/dL AST 38 H (14-36) U/L Total Protein 5.7 L (6.3-8.2) g/dL Total Protein (PEP) 5.3 L (6.2-8.2) g/dL Albumin 3.0 L (3.5-5.0) g/dL TSH 0.133 L (0.465-4.680) mIU/L Free T4 2.72 H (0.78-2.19) ng/dL Ur Leukocyte Esterase Moderate H (Negative) Urine WBC 41 H (0-5) /hpf Urine Bacteria Rare H (None) /hpf Urine Mucus Rare H (None) /hpf 03/28/20 Range/Units 07:20 RBC 3.09 L (3.80-5.40) m/uL Hgb 9.1 L (11.4-16.0) gm/dL Hct 28.1 L (34.0-46.0) % Plt Count 122 L (150-450) k/uL Chloride (98-107) mmol/L BUN (7-17) mg/dL Creatinine (0.52-1.04) mg/dL AST (14-36) U/L Total Protein (6.3-8.2) g/dL Total Protein (PEP) (6.2-8.2) g/dL Albumin (3.5-5.0) g/dL TSH (0.465-4.680) mIU/L Free T4 (0.78-2.19) ng/dL Ur Leukocyte Esterase (Negative) Urine WBC (0-5) /hpf Urine Bacteria (None) /hpf Urine Mucus (None) /hpf Microbiology - Last 24 Hours (Table) 03/27/20 09:55 Urine Culture - Preliminary Urine,Clean Catch
[2020-03-29] MEDS: LEVOTHYROXINE 137 MCG TAB PO SCH (06:21)
[2020-03-29] MEDS: SODIUM CHLORIDE 0.9% 1,000 ML IV SCH ×2 (06:22→09:01)
--- NOTE | 2020-03-29 08:16 | P.DS ---
Providers Date of admission: 03/25/20 11:15 Attending physician: Brian Zuluaga Consults: 03/25/20 11:16 Consult Physician Routine Consulting Provider: Nneka Porter Consult Reason/Comments: STEPHON, hypercalcemia Do you want consulting provider notified?: Already Contacted 03/26/20 10:18 Consult Physician Routine Consulting Provider: Krish Cortez Consult Reason/Comments: acute confusion, weakness Do you want consulting provider notified?: Yes Primary care physician: Brian Zuluaga - Discharge Diagnosis(es) (1) Hypercalcemia Current Visit: Yes Status: Acute (2) NSTEMI (non-ST elevated myocardial infarction) Current Visit: Yes Status: Acute (3) Asthma Current Visit: No Status: Acute (4) UTI (urinary tract infection) Current Visit: Yes Status: Acute Hospital Course: This is a discharge summary an 84-year-old female essentially meant for acute renal failure. The patient was stabilized. She had abnormal troponins but we suspect this related to her generalized weakness and renal failure. The patient was now stabilized. There is a modicum of renal failure at her new baseline but she is now transferred to [facility] when bed available. The patient is now stable and voiding without difficulty tolerating diet and ambulating for rehab purposes. The patient will follow-up with me in about one to 2 weeks. Patient Condition at Discharge: Stable Plan - Discharge Summary Discharge Rx Participant: No New Discharge Prescriptions: New Metoprolol Tartrate [Lopressor] 12.5 mg PO BID tab Continue Cholecalciferol [Vitamin D3 (25 Mcg = 1000 Iu)] 1,000 unit PO DAILY amLODIPine [Norvasc] 5 mg PO DAILY Albuterol Sulfate [Ventolin HFA] 2 puff INHALATION RT-QID PRN PRN Reason: Shortness Of Breath carBAMazepine CHEW [TEGretol Chew] 100 mg PO Q12H Levothyroxine Sodium [Synthroid] 137 mcg PO DAILY Ipratropium-Albuterol Nebulize [Duoneb 0.5 mg-3 mg/3 ml Soln] 3 ml INHALATION RT-QID Ibuprofen [Motrin] 600 mg PO TID PRN PRN Reason: Pain Diclofenac Sodium [Voltaren Gel] 2 gram TOPICAL QID PRN PRN Reason: Pain Discharge Medication List Cholecalciferol [Vitamin D3 (25 Mcg = 1000 Iu)] 1,000 unit PO DAILY 04/08/18 [History] amLODIPine [Norvasc] 5 mg PO DAILY 04/08/18 [History] Albuterol Sulfate [Ventolin HFA] 2 puff INHALATION RT-QID PRN 03/25/20 [History] Diclofenac Sodium [Voltaren Gel] 2 gram TOPICAL QID PRN 03/25/20 [History] Ibuprofen [Motrin] 600 mg PO TID PRN 03/25/20 [History] Ipratropium-Albuterol Nebulize [Duoneb 0.5 mg-3 mg/3 ml Soln] 3 ml INHALATION RT-QID 03/25/20 [History] Levothyroxine Sodium [Synthroid] 137 mcg PO DAILY 03/25/20 [History] carBAMazepine CHEW [TEGretol Chew] 100 mg PO Q12H 03/25/20 [History] Metoprolol Tartrate [Lopressor] 12.5 mg PO BID tab 03/29/20 [Rx] Follow up Appointment(s)/Referral(s): Brian Zuluaga MD [Primary Care Provider] - 1 Week Discharge Disposition: TRANSFER TO SNF/ECF
[2020-03-29 08:58] VITALS: BP 139/80; RESP 16; TEMP 98.2
[2020-03-29] MEDS: METOPROLOL TARTRATE 12.5 MG TAB PO SCH (09:01)
[2020-03-29] MEDS: amLODIPine 5 MG TAB PO SCH (09:01)
[2020-03-29] MEDS: IPRATROPIUM-ALBUTEROL 3 ML NEB INHALATION SCH ×2 (09:35→14:01)
[2020-03-29 09:49] VITALS: PULSE 87
[2020-03-29 14:30] VITALS: BMI 32.3
--- NOTE | 2020-03-29 15:59 | PN ---
PROGRESS NOTE Patient is seen for followup for acute kidney injury and hypercalcemia. Her calcium level has improved significantly down to 10.1 from yesterday. Creatinine is down to 2.3 from peak of about 2.79. Previous creatinine 0.65 on 04/13/2018. UA has been fairly benign. No evidence of obstruction on ultrasound. PHYSICAL EXAMINATION: On examination today, blood pressure was 139/80, heart rate 88 per minute. Patient is afebrile. EXAMINATION OF THE HEART: S1, S2. EXAMINATION OF THE LUNGS: Bilateral breath sounds are heard. Abdomen is soft, nontender. Examination of lower extremities shows no significant edema. M[employer] exam grossly intact. LABS: Labs show sodium 140, potassium 3.8, chloride 112, BUN 40, creatinine of 2.34, hemoglobin 9.1 g/dL. ASSESSMENT: 1. Acute kidney injury secondary to hypercalcemia and volume depletion, somewhat improved. However, creatinine still not at baseline, which was 0.65 in March of 2018. The patient will need close outpatient followup. I will order urine for eosinophils for possible acute interstitial nephritis since her urine shows few cells. She was maintained on antibiotics, but urine culture did not show any growth and the Bactrim was discontinued. UA has otherwise been quite benign and there is no evidence of obstruction on ultrasound. 2. Hypercalcemia associated with vitamin D toxicity and calcium supplements at home. Currently resolved. PTH was appropriately low. 3. Volume depletion, status post IV fluids. 4. Hypertension, maintained on Norvasc, which patient can continue as outpatient. 5. Bilateral renal cysts. PLAN: Patient can be discharged. Follow up as outpatient further for the acute kidney injury follow up and add urine eosinophils to UA that has already been sent out to the lab. MMODL / IJN: [id number] /
--- NOTE | 2020-04-01 00:36 | P.PN ---
Subjective Progress Note Date: 03/28/20 Patient was seen for a follow-up. Patient is doing much better. Patient is laying comfortably in the bed. Patient is alert and awake fully oriented. Patient's gait has much improved. Patient states she is walking around well. She walked with the therapist around the hallway. Patient denies any pain anywhere. No numbness or tingling. Objective - Vital Signs Vital signs: Vital Signs Temp 97.7 F 03/28/20 16:30 Pulse 64 03/28/20 16:47 Resp 18 03/28/20 16:30 BP 134/63 03/28/20 16:30 Pulse Ox 94 L 03/28/20 16:30 Intake & Output 03/27/20 03/28/20 03/28/20 18:59 06:59 18:59 Intake Total 1434.739 926 0139 Output Total 800 800 500 Balance 634.701 -390 590 Weight 77.6 kg Intake: IV 410 730 0.9 410 300 Invasive Line 2 30 Sodium Chloride 0.9% 1, 400 000 ml @ 50 mls/hr IV . Q20H [facility] Rx#:[id number] Intake, IV Titration 472.701 Amount Heparin Sod,Pork in 0.45% 72.701 NaCl 25,000 unit In 0.45 % NaCl 1 250ml.bag @ 12 UNITS/KG/HR 8.763 mls/hr IV .Q24H [facility] Rx#: [id number] Sodium Chloride 0.9% 1, 400 000 ml @ 50 mls/hr IV . Q20H [facility] Rx#:[id number] Oral 962 360 Output: Urine 800 800 500 Other: Voiding Method Bedside Commode Bedside Commode Toilet Diaper # Voids 1 1 1 # Bowel Movements 0 - Exam Patient's mental status, speech and leg which functions are normal. Cranial nerves are normal muscle strength is completely normal in the arms and legs. Hip flexion is almost back to normal. Hip adduction, hip abduction, knee extension and ankles are normal. Sensations are equal with no neglect. No ataxia for pddirs-[id number] or ionn-ah-wimo testing. Tone and bulk of muscles normal. No tremors. - Labs CBC & Chem 7: 03/28/20 07:20 03/28/20 07:20 Labs: Abnormal Lab Results - Last 24 Hours (Table) 03/28/20 03/28/20 03/28/20 Range/Units 07:20 07:20 07:20 RBC 3.09 L (3.80-5.40) m/uL Hgb 9.1 L (11.4-16.0) gm/dL Hct 28.1 L (34.0-46.0) % Plt Count 122 L (150-450) k/uL Chloride 112 H (98-107) mmol/L BUN 40 H (7-17) mg/dL Creatinine 2.34 H (0.52-1.04) mg/dL AST 38 H (14-36) U/L Total Protein 5.7 L (6.3-8.2) g/dL Total Protein (PEP) 5.3 L (6.2-8.2) g/dL Albumin 3.0 L (3.5-5.0) g/dL TSH 0.133 L (0.465-4.680) mIU/L Free T4 2.72 H (0.78-2.19) ng/dL Microbiology - Last 24 Hours (Table) 03/27/20 09:55 Urine Culture - Preliminary Urine,Clean Catch Assessment and Plan Assessment: * Altered mental status, likely due to metabolic encephalopathy due to hypercalcemia and other metabolic dysfunction as mentioned below. * Bilateral leg weakness for last 6 days. Patient's muscle strength is much improved in the legs. Suspect muscle weakness from hypercalcemia, and other metabolic dysfunction. * Hypercalcemia * Acute renal failure, improving * Anemia * Elevated vitamin D level, low PTH. Plan: * X-ray of the hips and pelvis revealed limited assessment of the lower femoral neck region due to external rotation of the hips during patient positioning. No displaced fracture. Mild bilateral hip osteoarthritis. Mild degenerative change at the right SI joint. * Serum protein electrophoresis normal, B12 653, folate 6.0, TSH low 0.133, Free T4 2.72. * Patient's muscle strength and gait has much improved. Suspect muscle weakness likely related to severe hypercalcemia and other metabolic dysfunction. * Nephrology on the case. * Stop calcium and vitamin D supplementation. * Neurologically clear for discharge.
[2020-04-01 13:25] LABS: Albumin 2.76 g/dL (3.80-4.90)
--- NOTE | 2020-04-04 16:06 | CDI ---
Documentation Clarification Form Date: 04/04/2020 04:05:00 PM From: Violetta Benito Phone: Admit Date: 03/25/2020 11:15:00 AM Patient Name: Mira Templeton Visit Number: [id number] Discharge Date: 03/29/2020 02:49:00 PM ATTENTION: The Clinical Documentation Specialists (CDI) and [facility] Coding Staff appreciate your assistance in clarifying documentation. Please respond to the clarification below the line at the bottom and electronically sign. The CDI & [facility] Coding staff will review the response and follow-up if needed. Please note: Queries are made part of the Legal Health Record. If you have any questions, please contact the author of this message via ITS. Dr. Brian Zuluaga Myocardial infarction is documented in the: ED, H&P, PNs, DS 03/26 Consult, PNs document: Acute renal failure Abnormal troponins, suspect secondary to acute renal failure, patient without chest pain or acute EKG changes. Patient History/Risk Factors: STEPHON, Hypercalcemia, Asthma, HTN, GERD, Hypothyroid, Obesity, Anemia Clinical Indicators: Elevated troponin Troponin: 0.147, 0.134, 0.128 EKG Results: Sinus rhythm with 1st degree AV block Treatment: Heparin IV Consult: Ghassan In order to capture the severity of condition and necessary documentation specificity, please clarify: Type of Infarction: Type II [place] NSTEMI Elevated troponin-this is the correct diagnosis related to renal failure Unable to determine Other Condition, please specify MTDD
== END 2020-03-29 14:49 | DRG 682 ==
LOC: EC 09:07 → 3SCARD 11:15
PROVIDERS: ADMIT Family Medicine; ATTEND Family Medicine
DX: N17.9 Acute kidney failure, unspecified (principal); G93.41 Metabolic encephalopathy; E86.9 Volume depletion, unspecified; E83.52 Hypercalcemia; J45.909 Unspecified asthma, uncomplicated; I10 Essential (primary) hypertension; K21.9 Gastro-esophageal reflux disease without esophagitis; E89.0 Postprocedural hypothyroidism; I44.0 Atrioventricular block, first degree; E66.9 Obesity, unspecified; R00.1 Bradycardia, unspecified; D64.9 Anemia, unspecified; M16.0 Bilateral primary osteoarthritis of hip; N28.1 Cyst of kidney, acquired; R77.8 Other specified abnormalities of plasma proteins; I34.0 Nonrheumatic mitral (valve) insufficiency; T39.395A Adverse effect of other nonsteroidal anti-inflammatory drugs [NSAID], initial encounter; T45.2X5A Adverse effect of vitamins, initial encounter; Z68.32 Body mass index [BMI] 32.0-32.9, adult; Z71.3 Dietary counseling and surveillance; Z79.890 Hormone replacement therapy; Z79.899 Other long term (current) drug therapy; Z85.3 Personal history of malignant neoplasm of breast; Z85.41 Personal history of malignant neoplasm of cervix uteri; Z98.890 Other specified postprocedural states; Z90.49 Acquired absence of other specified parts of digestive tract; Z98.42 Cataract extraction status, left eye; Z98.41 Cataract extraction status, right eye; Z90.710 Acquired absence of both cervix and uterus; Z96.1 Presence of intraocular lens; Z96.652 Presence of left artificial knee joint; Z87.01 Personal history of pneumonia (recurrent); Z87.891 Personal history of nicotine dependence; Z88.2 Allergy status to sulfonamides; Z91.048 Other nonmedicinal substance allergy status; Z80.9 Family history of malignant neoplasm, unspecified
CPT/HCPCS: 36415; 70450; 71046; 73521; 76770; 80048; 80053; 81001; 82164; 82306; 82330; 82607; 82652; 82746; 83605; 83735; 83970; 84165; 84439; 84443; 84484; 85025; 85610; 85730; 86334; 87086; 93005; 93306; 94640; 94760; 96360; 96361; 99291

== ENCOUNTER → 2021-02-04 | Outpatient (CLI) | payer MEDICARE ==
--- NOTE | 2021-02-05 10:28 | MM ---
Reason for exam: screening (asymptomatic). Last mammogram was performed 1 year ago. History: Patient is postmenopausal, has history of breast cancer at age 70, and has history of other cancer at age 70. Family history of breast cancer in mother at age 39, breast cancer in aunt at age 48, and breast cancer in daughter at age 47. Malignant lumpectomy of the right breast, 2006. Radiation therapy of the right breast, 2006. Excisional biopsy of the left breast, 1992. Took estrogen for 6 months beginning at age 33. Physical Findings: A clinical breast exam by your physician is recommended on an annual basis and results should be correlated with mammographic findings. MG 3D Screening Mammo W/Cad Bilateral CC and MLO view(s) were taken. Prior study comparison: February 01, 2020, bilateral MG screening mammo w CAD. January 17, 2019, right breast MG work up mamm w CAD RT. The breast tissue is heterogeneously dense. This may lower the sensitivity of mammography. Stable benign calcifications. There is no discrete abnormality. No significant changes when compared with prior studies. ASSESSMENT: Benign, BI-RAD 2 RECOMMENDATION: Routine screening mammogram of both breasts in 1 year.
== END | disposition home or self-care (01) ==
LOC: RADMAMWWP 11:02
PROVIDERS: ATTEND Family Medicine
DX: Z12.31 Encounter for screening mammogram for malignant neoplasm of breast (principal)
CPT/HCPCS: 77063; 77067

== ENCOUNTER → 2022-02-06 | Outpatient (CLI) | payer MEDICARE ==
--- NOTE | 2022-02-09 17:04 | MM ---
Reason for Exam: Screening (asymptomatic). Last screening mammogram was performed 12 month(s) ago. Patient History: Menarche at age 14. First Full-Term at age 24. Left ovary removed at age 34. Right ovary removed at age 34. Hysterectomy at age 42. Postmenopausal. Breast cancer, right, age 70. Estrogen for 6 months from age 33 until age 33. 1992, Excisional Biopsy on the Left side. 2006, Malignant Lumpectomy on the right side. 2006, Radiation Therapy on the right side. Maternal aunt had breast cancer, age 48. Daughter had breast cancer, age 47. Mother had breast cancer, age 41. Prior Study Comparison: 01/17/2019 Right Diagnostic Mammogram, [facility]. 02/01/2020 Bilateral Screening Mammogram, [facility]. 02/04/2021 Bilateral Screening Mammogram, [facility]. Tissue Density: There are scattered fibroglandular densities. Findings: Analyzed By CAD. Multiple scattered benign-appearing calcifications are present bilaterally. No significant interval change is evident. Benign vascular calcifications present. No suspicious groups of microcalcifications, spiculated or lobular masses, architectural distortion or other secondary signs of malignancy are mammographically apparent. Overall Assessment: Benign, BI-RAD 2 Management: Screening Mammogram of both breasts in 1 year. A negative mammogram report should not preclude additional follow up of suspicious palpable abnormalities. Patient should continue monthly self breast exam. A clinical breast exam by your physician is recommended on an annual basis and results should be correlated with mammographic findings. Electronically signed and approved by: Felix Danielle D.O. Radiologis
== END | disposition home or self-care (01) ==
LOC: RADMAMWWP 11:56
PROVIDERS: ATTEND Family Medicine
DX: Z12.31 Encounter for screening mammogram for malignant neoplasm of breast (principal); Z78.0 Asymptomatic menopausal state; Z80.3 Family history of malignant neoplasm of breast; Z90.721 Acquired absence of ovaries, unilateral
CPT/HCPCS: 77063; 77067

== ENCOUNTER → 2023-02-09 | Outpatient (CLI) | payer MEDICARE ==
--- NOTE | 2023-02-10 09:46 | MM ---
Reason for Exam: Screening (asymptomatic). Last screening mammogram was performed 12 month(s) ago. Patient History: Menarche at age 14. First Full-Term at age 24. Left ovary removed at age 34. Right ovary removed at age 34. Hysterectomy at age 42. Postmenopausal. Breast cancer, right, age 70. Previous chest radiation therapy at age 70. Estrogen for 6 months from age 33 until age 33. 1992, Excisional Biopsy on the Left side. 2006, Malignant Lumpectomy on the right side. 2006, Radiation Therapy on the right side. Maternal aunt had breast cancer, age 48. Daughter had breast cancer, age 47. Mother had breast cancer, age 41. Prior Study Comparison: 02/01/2020 Bilateral Screening Mammogram, [facility]. 02/04/2021 Bilateral Screening Mammogram, [facility]. 02/06/2022 Bilateral MG 3D screening mammo w/cad, [facility]. Tissue Density: The breast tissue is heterogeneously dense. This may lower the sensitivity of mammography. Findings: Analyzed By CAD. Right breast biopsy clip. There is no suspicious group of microcalcifications or new suspicious mass. Benign-appearing calcifications bilaterally. Overall Assessment: Benign, BI-RAD 2 Management: Screening Mammogram of both breasts in [address] [facility] will attempt to contact patient to return for supplemental views and ultrasound if indicated. Patient should continue monthly self-breast exams. A clinical breast exam by your physician is recommended on an annual basis. This exam should not preclude additional follow-up of suspicious palpable abnormalities. Note on Patricia scores and lifetime risk: 1. A Patricia score greater than 3% is considered moderate risk. If this is the case, consider specialist referral to assess eligibility for a risk reducing agent. 2. If overall lifetime risk for the development of breast cancer is 20% or higher, the patient may qualify for future screening with alternating mammogram and breast MRI. Electronically signed and approved by: Yomi Yepez DO
== END | disposition home or self-care (01) ==
LOC: RADMAMWWP 10:21
PROVIDERS: ATTEND Family Medicine
DX: Z12.31 Encounter for screening mammogram for malignant neoplasm of breast (principal); Z85.3 Personal history of malignant neoplasm of breast; Z80.3 Family history of malignant neoplasm of breast; Z78.0 Asymptomatic menopausal state
CPT/HCPCS: 77063; 77067

== ENCOUNTER → 2024-02-15 | Outpatient (CLI) | payer MEDICARE ==
--- NOTE | 2024-02-16 17:14 | MM ---
Reason for Exam: Screening (asymptomatic). Last mammogram was performed 1 year(s) and 1 month(s) ago. Patient History: Menarche at age 14. First Full-Term at age 24. Left ovary removed at age 34. Right ovary removed at age 34. Hysterectomy at age 42. Postmenopausal. Breast cancer, right, age 70. Previous chest radiation therapy at age 70. Estrogen for 6 months from age 33 until age 33. 1992, Excisional Biopsy on the Left side. 2006, Malignant Lumpectomy on the right side. 2006, Radiation Therapy on the right side. Maternal aunt had breast cancer, age 48. Daughter had breast cancer, age 47. Mother had breast cancer, age 41. Prior Study Comparison: 02/04/2021 Bilateral Screening Mammogram, [facility]. 02/06/2022 Bilateral MG 3D screening mammo w/cad, [facility]. 02/09/2023 Bilateral MG 3D screening mammo w/cad, [facility]. Tissue Density: There are scattered areas of fibroglandular density. Findings: Analyzed By CAD. Postsurgical and posttreatment change redemonstrated right breast. Benign vascular, oil cyst, and secretory calcifications are redemonstrated on the right. There is no suspicious group of microcalcifications or new suspicious mass in either breast. Overall Assessment: Benign, BI-RAD 2 Management: Screening Mammogram of both breasts in 1 year. Patient should continue monthly self-breast exams. A clinical breast exam by your physician is recommended on an annual basis. This exam should not preclude additional follow-up of suspicious palpable abnormalities. [facility], , 02/16/2024 5:11 PM. Electronically signed and approved by: Janice Llamas M.D. Radiologist
== END | disposition home or self-care (01) ==
LOC: RADMAMWWP 10:03
PROVIDERS: ATTEND Family Medicine
DX: Z12.31 Encounter for screening mammogram for malignant neoplasm of breast (principal); R92.323 Mammographic fibroglandular density, bilateral breasts; Z78.0 Asymptomatic menopausal state; Z80.3 Family history of malignant neoplasm of breast; Z90.722 Acquired absence of ovaries, bilateral; Z92.3 Personal history of irradiation
CPT/HCPCS: 77063; 77067